=== PATIENT | male | born 1995 | race Caucasian/White ===

== ENCOUNTER 2016-11-10 10:27 | Inpatient (IN) | payer OTHER ==
[2016-11-10] VITALS (7 sets, daily range): BP systolic 135–145; BP diastolic 79–92; PULSE 91–106; RESP 14–18; TEMP 98–98.2; O2SAT 96–98
[2016-11-10] MEDS ORDERED: METF500T PO (10:54)
[2016-11-10] MEDS ORDERED: SITA50TA4 PO (10:54)
[2016-11-10] MEDS ORDERED: ASPIRIN 325 MG TAB PO ONE (11:15)
[2016-11-10] MEDS ORDERED: SODIUM CHLORIDE 0.9% FLUSH 10 ML FLUSH IVF PRN (11:15)
--- NOTE | 2016-11-10 11:23 | PD ---
HPI Chief Complaint: Neuro Symptoms/ Deficits Time Seen by Provider: 10:58 Travel History International Travel<30 days: No Contact w/Intl Traveler<30days: No Traveled to known affect area: No History of Present Illness HPI The patient is a 21-year-old male who presents to the emergency department with his mother and father after being evaluated by his neurologist in [place], [place]. The patient started having symptoms in July which include slurring of the speech. The patient was enrolled in college in [place], [place]. The patient appeared to have anxiety issues and was somewhat paranoid according to the mother. The patient was evaluated by counselors at the [facility] she stated it may be related to stress. However, the mother noted the patient started to have difficulty with speech and occasionally would have difficulty moving certain parts of the body. The patient was seen by the primary physician and referred to neurology. The patient had an [facility] the brain [facility] at [facility] which revealed multifocal areas of acute cortical infarction involving the left posterior parietal, left medial occipital , bilateral temporal lobes with no acute hemorrhage noted. The multifocal distribution raised the possibility of embolic disease. The patient is not sexually active and has no history of IVDA. The parents state the patient was a full-term delivery, vaginal, and was admitted to the hospital 2 weeks of age for possible meningitis. However, the mother states that the lumbar puncture was negative for meningitis. He does have a history of tick exposure in the past, but no history of Lyme disease. No history of syphilis according to the patient or family members. Patient was referred to the emergency department for further evaluation of multiple strokes. 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) Influenza Vaccination: No Past Surgical History Surgical History: No Previous Surgery Social History Alcohol Use: No Tobacco Use: No Substance Use: No Allergies-Medications (Allergen,Severity, Reaction): Coded Allergies: No Known Allergies (Unverified , 11/10/16) Reported Meds & Prescriptions Reported Meds & Active Scripts Active Reported Janumet Xr (Sitagliptin-Metformin ER) 50-1,000 Mg Tab 1 Tab PO DAILY Metformin (Metformin HCl) 500 Mg Tab 500 Mg PO BIDPC With meals Review of Systems Except as stated in HPI: all other systems reviewed are Neg Eyes: Positive: Visual changes HENT: No: Headaches Cardiovascular: No: Chest Pain or Discomfort Respiratory: No: Shortness of Breath Gastrointestinal: No: Nausea, Vomiting, Abdominal Pain Neurologic: Positive: Weakness, Focal Abnormalities, Coordination Problem, Change in Mentation, Slurred Speech Psychiatric: No: Substance Abuse Physical Exam Narrative GENERAL: Awake, alert, very pleasant 21-year-old male who appears his stated age and is in no acute respiratory distress. The patient does appear mildly paranoid and keeps looking over his right shoulder. SKIN: Focused skin assessment warm/dry. HEAD: Atraumatic. Normocephalic. EYES: Pupils equal and round. Pupils are 4 mm bilateral and reactive. EOMs are intact. ENT: No nasal bleeding or discharge. Mucous membranes pink and moist. NECK: Trachea midline. No JVD. CARDIOVASCULAR: Regular rate and rhythm. No murmur appreciated. RESPIRATORY: No accessory muscle use. Clear to auscultation. Breath sounds equal bilaterally. GASTROINTESTINAL: Abdomen soft, non-tender, nondistended. No rebound tenderness. MUSCULOSKELETAL: No obvious deformities. No clubbing. No cyanosis. No edema. NEUROLOGICAL: Awake and alert. Patient will follow simple commands. Extraocular muscles are intact. He will open the mouth but will not stick the tongue out. 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 He will move both legs but has difficulty performing heel to [place]. He will place the right hand to the nose, but has difficulty place in the left hand to the nose. He is able to tell me his name, has mild dysarthria. Slight stuttering speech. PSYCHIATRIC: Appears slightly paranoid. Data Data Last Documented VS Vital Signs Date Time Temp Pulse Resp B/P Pulse Ox O2 Delivery O2 Flow Rate FiO2 11/10/16 11:00 104 14 144/92 97 Room Air 11/10/16 10:28 98.0 Orders Electrocardiogram (11/10/16 11:11) Prothrombin Time / Inr (Pt) (11/10/16 11:11) Act Partial Throm Time (Ptt) (11/10/16 11:11) Complete Blood Count With Diff (11/10/16 11:11) Comprehensive Metabolic Panel (11/10/16 11:11) Creatine Kinase (Cpk) (11/10/16 11:11) Drug Screen, Random Urine (11/10/16 11:11) Troponin I (11/10/16 11:11) Urinalysis - C+S If Indicated (11/10/16 11:11) Chest, Single Ap (11/10/16 11:11) Ecg Monitoring (11/10/16 11:11) Iv Access Insert/Monitor (11/10/16 11:11) Oximetry (11/10/16 11:11) Aspirin (Aspirin) (11/10/16 11:15) Sodium Chloride 0.9% Flush (Ns Flush) (11/10/16 11:15) Rapid Plasma Regin (Rpr) W Ttr (11/10/16 11:11) Bonnie Screen (11/10/16 11:11) Rheumatoid Screen/Titer (Rf) (11/10/16 11:11) Lyme Disease Pcr (11/10/16 11:11) B.Burgdorferi Igg&Igm Ab Lymes (11/10/16 11:11) Admit Order (Ed Use Only) (11/10/16 11:46) Labs Laboratory Tests Test 11/10/16 11:20 White Blood Count 8.6 TH/MM3 Red Blood Count 4.67 MIL/MM3 Hemoglobin 14.7 GM/DL Hematocrit 41.5 % Mean Corpuscular Volume 88.7 FL Mean Corpuscular Hemoglobin 31.4 PG Mean Corpuscular Hemoglobin 35.4 % Concent Red Cell Distribution Width 12.1 % Platelet Count 263 TH/MM3 Mean Platelet Volume 9.6 FL Neutrophils (%) (Auto) 74.6 % Lymphocytes (%) (Auto) 15.3 % Monocytes (%) (Auto) 6.0 % Eosinophils (%) (Auto) 3.1 % Basophils (%) (Auto) 1.0 % Neutrophils # (Auto) 6.4 TH/MM3 Lymphocytes # (Auto) 1.3 TH/MM3 Monocytes # (Auto) 0.5 TH/MM3 Eosinophils # (Auto) 0.3 TH/MM3 Basophils # (Auto) 0.1 TH/MM3 CBC Comment DIFF FINAL Differential Comment Prothrombin Time 10.5 SEC Prothromb Time International 1.0 RATIO Ratio Activated Partial 26.3 SEC Thromboplast Time Sodium Level 136 MEQ/L Potassium Level 4.4 MEQ/L Chloride Level 101 MEQ/L Carbon Dioxide Level 26.0 MEQ/L Anion Gap 9 MEQ/L Blood Urea Nitrogen 29 MG/DL Creatinine 0.92 MG/DL Estimat Glomerular Filtration 103 ML/MIN Rate Random Glucose 214 MG/DL Calcium Level 9.6 MG/DL Total Bilirubin 0.4 MG/DL Aspartate Amino Transf 51 U/L (AST/SGOT) Alanine Aminotransferase 69 U/L (ALT/SGPT) Alkaline Phosphatase 78 U/L Total Creatine Kinase 293 U/L Troponin I LESS THAN 0.02 NG/ML Total Protein 7.3 GM/DL Albumin 4.1 GM/DL Rheumatoid Factor Screen NEGATIVE Rheumatoid Factor Titer IU/ML MDM Medical Decision Making Medical Screen Exam Complete: Yes Emergency Medical Condition: Yes Medical Record Reviewed: Yes Interpretation(s) MRI of the brain with and without contrast performed November 06, 2016 [facility] reveals multifocal areas of acute cortical infarction involving the left posterior parietal, left medial occipital, bilateral temporal lobes. No acute hemorrhage noted. Multifocal distribution raises possibility of embolic disease. Clinical correlation is recommended. Laboratory Tests Test 11/10/16 11:20 White Blood Count 8.6 TH/MM3 Red Blood Count 4.67 MIL/MM3 Hemoglobin 14.7 GM/DL Hematocrit 41.5 % Mean Corpuscular Volume 88.7 FL Mean Corpuscular Hemoglobin 31.4 PG Mean Corpuscular Hemoglobin 35.4 % Concent Red Cell Distribution Width 12.1 % Platelet Count 263 TH/MM3 Mean Platelet Volume 9.6 FL Neutrophils (%) (Auto) 74.6 % Lymphocytes (%) (Auto) 15.3 % Monocytes (%) (Auto) 6.0 % Eosinophils (%) (Auto) 3.1 % Basophils (%) (Auto) 1.0 % Neutrophils # (Auto) 6.4 TH/MM3 Lymphocytes # (Auto) 1.3 TH/MM3 Monocytes # (Auto) 0.5 TH/MM3 Eosinophils # (Auto) 0.3 TH/MM3 Basophils # (Auto) 0.1 TH/MM3 CBC Comment DIFF FINAL Differential Comment Prothrombin Time 10.5 SEC Prothromb Time International 1.0 RATIO Ratio Activated Partial 26.3 SEC Thromboplast Time Sodium Level 136 MEQ/L Potassium Level 4.4 MEQ/L Chloride Level 101 MEQ/L Carbon Dioxide Level 26.0 MEQ/L Anion Gap 9 MEQ/L Blood Urea Nitrogen 29 MG/DL Creatinine 0.92 MG/DL Estimat Glomerular Filtration 103 ML/MIN Rate Random Glucose 214 MG/DL Calcium Level 9.6 MG/DL Total Bilirubin 0.4 MG/DL Aspartate Amino Transf 51 U/L (AST/SGOT) Alanine Aminotransferase 69 U/L (ALT/SGPT) Alkaline Phosphatase 78 U/L Total Creatine Kinase 293 U/L Troponin I LESS THAN 0.02 NG/ML Total Protein 7.3 GM/DL Albumin 4.1 GM/DL Rheumatoid Factor Screen NEGATIVE Rheumatoid Factor Titer IU/ML Chest x-ray unremarkable Differential Diagnosis Differential diagnoses includes CVA, TIA, septic emboli, endocarditis, myxoma, ventricular/atrial thrombus, autoimmune disease, hypercoagulable disorder, syphilis, Lyme disease, vasculitis. Narrative Course IV was established, labs are drawn and sent, and the patient was placed on cardiac telemetry monitoring and continuous pulse oximetry monitoring. I reviewed the patient's MRI, no acute hemorrhage noted, multiple infarcts suggesting multifocal distribution and the possibility of embolic disease. The patient was administered aspirin. I discussed the patient with the on-call medical team who agrees with admission. Physician Communication Physician Communication I discussed the patient with the on-call medical team who agrees with admission. Diagnosis Primary Impression: CVA (cerebral vascular accident) Qualified Code: I63.9 - Cerebrovascular accident (CVA), unspecified mechanism Admitting Information Admitting Physician Requests: Admit Condition: Stable Papo Stephen MD November 10, 2016 11:23
[2016-11-10 11:36] LABS: AUTOMATED NEUTROPHIL # 6.4 TH/MM3 (1.8-7.7); BASOPHIL # 0.1 TH/MM3 (0-0.2); EOSINOPHIL # 0.3 TH/MM3 (0-0.4); EOSINOPHIL % 3.1 % (0.0-4.0); HEMATOCRIT 41.5 % (39.0-51.0); HEMO FLAGS DIFF FINAL; LYMPH % 15.3 % (9.0-44.0); LYMPHOCYTE # 1.3 TH/MM3 (1.0-4.8); MEAN CELL VOLUME 88.7 FL (80.0-100.0); MEAN CORPUSCULAR HEMOGLOBIN 31.4 PG (27.0-34.0); MEAN CORPUSCULAR HGB CONC 35.4 % (32.0-36.0); NEUT % 74.6 % (16.0-70.0); PLATELET COUNT 263 TH/MM3 (150-450); RED BLOOD COUNT 4.67 MIL/MM3 (4.50-5.90); RED CELL DISTRIBUTION WIDTH 12.1 % (11.6-17.2); WHITE BLOOD COUNT 8.6 TH/MM3 (4.0-11.0)
[2016-11-10 11:42] LABS: APTT (PATIENT) 26.3 SEC (24.3-30.1); PROTHROMBIN TIME - PATIENT 10.5 SEC (9.8-11.6)
[2016-11-10 11:50] LABS: ALT (GPT) 69 U/L (12-78); ANION GAP 9 MEQ/L (5-15); AST (GOT) 51 U/L (15-37); BLOOD UREA NITROGEN 29 MG/DL (7-18); CHLORIDE 101 MEQ/L (98-107); GLOMERULAR FILTRATION RATE 103 ML/MIN (>89); POTASSIUM 4.4 MEQ/L (3.5-5.1); SODIUM (NA) 136 MEQ/L (136-145)
[2016-11-10 11:51] LABS: RHEUMATOID FACTOR TRIGGER LESS THAN 10.0 IU/ML (0.0-14.9)
[2016-11-10 11:53] LABS: ALKALINE PHOSPHATASE 78 U/L (45-117); CREATINE KINASE 293 U/L (39-308); TOTAL BILIRUBIN ADULT 0.4 MG/DL (0.2-1.0)
--- NOTE | 2016-11-10 12:41 | RADRPT ---
EXAM DATE/TIME: 11/10/2016 11:20 [facility] COMPARISON: No previous studies available for comparison. INDICATIONS : Stroke MEDICAL HISTORY : None. SURGICAL HISTORY : None. ENCOUNTER: Initial ACUITY: 1 day PAIN SCORE: 0/10 LOCATION: Bilateral chest FINDINGS: A single view of the chest demonstrates the lungs to be symmetrically aerated without evidence of mas s, infiltrate or effusion. The cardiomediastinal contours are unremarkable. Osseous structures are intact. CONCLUSION: No acute disease. Archie Denise MD on November 10, 2016 at 12:39 Board Certified Radiologist. This report was verified electronically.
--- NOTE | 2016-11-10 13:01 | HHI.HP ---
[facility] Service Family Medicine Primary Care Physician Charlie Juarez MD Admission Diagnosis CVA, probable embolic Diagnoses: International Travel<30 Days: No Contact w/Intl Traveler<30days: No Known Affected Area: No History of Present Illness Patient is a 21 year old male sent to the ED by his neurologist in [place] for further evaluation following an MRI brain w/ and w/o from 11/06 with findings showing multifocal areas of acute cortical infarction involving the left posterior parietal, left medial occipital, bilateral temporal lobes with no acute hemorrhage noted. Parents state he was previously healthy prior to 2016. At that time, the patient was at [facility] in [place], [place] and his parents report he called them over the phone due to having slurred speech. Parents state the only other symptom he had at that time was of a headache. Patient did not have any motor weakness or cognitive deficit that they know of. They state he was evaluated by a physician shortly after that, had a CT scan in July which they state was normal. He was later evaluated by an laundry operator wash room during spring in August and diagnosed with T2DM; patient had an HbA1c of 10.8. He was then started on Metformin. During spring he also had a complete physical examination by his PCP as well as basic lab workup which parents state were all normal. Parents state he was at his baseline healthy status and functioning well without any speech, motor, or cognitive deficit. He visited home again during and was fine at that time. Parents state near the end of September he called his parents again and stated he had difficulty comprehending his final exam. He also starting becoming more confused at this time and parents state he could only understand a few things. Patient was able to graduate college with a degree in criminal justice but parents state he remained so confused he needed close assistance to be able to walk across the stage at graduation. Patient has been living with his parents the past couple weeks and parents report his cognitive status has continued to slowly decline over this time period. They also report he first had motor weakness earlier today when his balance was off. Parents do state he has exposure to ticks. They previously had a [employer] [place] [employer] dog and he would help to get ticks off the dog. However they state to their knowledge he was never bitten by a tick. They deny him every using IV drugs. They state he is not sexually active. No h/o syphilis. They deny any fevers, chills, or night sweats at any time since his symptoms first appeared in July. (Emil Alvarez MD R1) Review of Systems Constitutional: COMPLAINS OF: Weight loss, DENIES: Fever, Chills, Night Sweats Respiratory: DENIES: Cough, Shortness of breath Cardiovascular: DENIES: Chest pain Gastrointestinal: DENIES: Bloody stools Genitourinary: DENIES: Hematuria Integumentary: DENIES: Rash Neurologic: COMPLAINS OF: Headache, Speech Problems, DENIES: Localized weakness, Seizures Psychiatric: COMPLAINS OF: Anxiety, Confusion Other ROS provided by parents (Emil Alvarez MD R1) Past Family Social History Past Medical History Parents report he was treated for meningitis at 2 weeks of age, LP was negative for bacterial etiology per parents Needed hearing aids beginning at about [age] years of age, parents report a work up was done at that time including an MRI brain which was normal T2DM diagnosed 08/2016 Past Surgical History Towner teeth extraction Reported Medications Reported Meds & Active Scripts Active Reported Janumet Xr (Sitagliptin-Metformin ER) 50-1,000 Mg Tab 1 Tab PO DAILY Metformin (Metformin HCl) 500 Mg Tab 500 Mg PO BIDPC With meals (Emil Alvarez MD R1) Allergies: Coded Allergies: No Known Allergies (Unverified , 11/10/16) Family History MGM: DM onset in 60s MGF: [place] early 60s, vascular dementia, MS onset reportedly in 70s PGF: CHF PGM: Alzheimer's Per parents no known FH of autoimmune disorders or coagulopathies Social History Patient lived in [place] up through high school, then moved to [place] with his parents Parents state he has no h/o IVDA or cigarette smoking Rare etoh intake on social occasions only Parents do not think he is sexually active No other sick contacts No recent travel out of country or state No recent camping trips (Emil Alvarez MD R1) Physical Exam Vital Signs Vital Signs Date Time Temp Pulse Resp B/P Pulse Ox O2 Delivery O2 Flow Rate FiO2 11/10/16 12:00 102 14 137/87 97 Room Air 11/10/16 11:00 104 14 144/92 97 Room Air 11/10/16 10:47 103 15 98 11/10/16 10:28 98.0 93 18 141/79 98 Room Air Physical Exam GENERAL: NAD, lying in bed, repeatedly looks over his right shoulder NEURO: Limited due to cognitive status. Patient is alert. Oriented to person. Does not follow most commands. Speech is slurred. There are some cranial nerve deficits, difficult to assess as patient does not follow all commands. Left eyebrow raise decreased. Visual block are unable to be tested. Does not cooperate to assess strength or sensory. Gait not tested. SKIN: Warm and dry. No rashes or erythema. HEAD: Normocephalic. Atraumatic. EYES: PERRL. EOMI. No scleral icterus. No injection or drainage. ENT: Bilateral hearing aids in place. No nasal drainage. Moist mucous membranes. No oral ulcers or lesions. NECK: Supple, trachea midline. No JVD or lymphadenopathy. CARDIOVASCULAR: Regular rate and rhythm without murmurs, rubs, gallops, or plops. Peripheral pulses 2+. Capillary refill < 2 seconds. RESPIRATORY: Breath sounds clear to auscultation and equal bilaterally, without wheezes, rales, or rhonchi. No accessory muscle use. GASTROINTESTINAL: Abdomen soft, nontender, nondistended, normal BS. No organomegaly or masses. No rebound tenderness. No guarding. MUSCULOSKELETAL: No edema, cyanosis, or clubbing. BACK: Nontender without obvious deformity. Laboratory Laboratory Tests Test 11/10/16 11:20 White Blood Count 8.6 Red Blood Count 4.67 Hemoglobin 14.7 Hematocrit 41.5 Mean Corpuscular Volume 88.7 Mean Corpuscular Hemoglobin 31.4 Mean Corpuscular Hemoglobin 35.4 Concent Red Cell Distribution Width 12.1 Platelet Count 263 Mean Platelet Volume 9.6 Neutrophils (%) (Auto) 74.6 Lymphocytes (%) (Auto) 15.3 Monocytes (%) (Auto) 6.0 Eosinophils (%) (Auto) 3.1 Basophils (%) (Auto) 1.0 Neutrophils # (Auto) 6.4 Lymphocytes # (Auto) 1.3 Monocytes # (Auto) 0.5 Eosinophils # (Auto) 0.3 Basophils # (Auto) 0.1 CBC Comment DIFF FINAL Differential Comment Prothrombin Time 10.5 Prothromb Time International 1.0 Ratio Activated Partial 26.3 Thromboplast Time Sodium Level 136 Potassium Level 4.4 Chloride Level 101 Carbon Dioxide Level 26.0 Anion Gap 9 Blood Urea Nitrogen 29 Creatinine 0.92 Estimat Glomerular Filtration 103 Rate Random Glucose 214 Calcium Level 9.6 Total Bilirubin 0.4 Aspartate Amino Transf 51 (AST/SGOT) Alanine Aminotransferase 69 (ALT/SGPT) Alkaline Phosphatase 78 Total Creatine Kinase 293 Troponin I LESS THAN 0.02 Total Protein 7.3 Albumin 4.1 Rheumatoid Factor Screen NEGATIVE Rheumatoid Factor Titer (Emil Alvarez MD R1) Result Diagram: 11/10/16 1120 11/10/16 1120 Imaging Last 48 hours Impressions Chest X-Ray 11/10/16 1111 Signed Impressions: Service Date/Time: Thursday, November 10, 2016 11:20 - CONCLUSION: No acute disease. Archie Denise MD Neck CTA 11/10/16 0000 Signed Impressions: Service Date/Time: Thursday, November 10, 2016 13:55 - CONCLUSION: 1. Negative examination of the carotid arteries Jorge Kearney MD Head Magnetic Resonance Angiography 11/10/16 0000 Signed Impressions: Service Date/Time: Thursday, November 10, 2016 15:06 - CONCLUSION: 1. Unremarkable MR angiography of the brain. Jorge Kearney MD Head CTA 11/10/16 0000 Signed Impressions: Service Date/Time: Thursday, November 10, 2016 13:55 - CONCLUSION: No stenosis, thrombus or aneurysm. Normal variants as described above. Archie Denise MD Head CT 11/10/16 0000 Signed Impressions: Service Date/Time: Thursday, November 10, 2016 13:49 - CONCLUSION: 1. Acute left temporoparietal infarction.In a patient of this age emboli should be considered both bland and septic. Echocardiography should be considered Jorge Kearnye MD Brain MRI 11/10/16 0000 Signed Impressions: Service Date/Time: Thursday, November 10, 2016 15:06 - CONCLUSION: 1. Acute nonhemorrhagic infarction involving the left temporal parietal lobe. 2. Abnormal signal involving both temporal lobes and right parietal lobe. These areas are not consistent with infarction. The findings would suggest global hypoxia. Infectious encephalitis could have a similar appearance but is felt less likely. Charlie Salas Jr., MD (Emil Alvarez MD R1) Assessment and Plan Assessment and Plan 21 year old male with recent diagnosis of T2DM in 08/2016 but otherwise healthy sent to the ED by his neurologist for further evaluation following an MRI brain w/ and w/o from 11/06 with findings showing multifocal areas of acute cortical infarction involving the left posterior parietal, left medial occipital, bilateral temporal lobes with no acute hemorrhage noted. Etiology is unclear at this time, includes infectious causes, structural heart disease, PFO, atrial myxoma, endocarditis if any unreported IV drug use, hypercoagulability disorder , vs embolic phenomenon due to another cause. Code Status Full code Discussed Condition With Dr. Trejo, Dr. Sarabjit Barlow, [facility] Dr. Antonio Stephen (Emil Alvarez MD R1) Attending Attestation Patient seen and examined. Case reviewed and discussed with the resident team. Agree with plan of care as discussed with me and documented in the resident note. seen on admission in ED (Carissa Trejo MD) Problem List: (1) Multifocal neurological deficit Status: Acute Plan: - Imaging obtained as above, significant for acute nonhemorrhagic infarction involving the left temporal and parietal lobe, abnormal signals not c /w infarction, findings suggestive of global hypoxia, infectious encephalitis to be considered in the differential - Neurology consulted. Dr. Alvarez was informed of the case via phone, recommended imaging obtained above, appreciate recommendations - Cardiology consulted for possible structural heart disease as underlying cause , possible FRANKY - EKG shows sinus tachycardia at 101 bpm - Hypercoagulability workup started, including factor 5, lupus anticoagulant, protein C and S, antithrombin - Hematology consulted, appreciate recommendations - Urine drug screen ordered in the case any IV drug use was unreported - Lyme serologies pending - AILYN pending - RF pending - RPR pending - Continuous telemetry - Neuro checks q4h - Monitor vitals q4h - OOB with assistance only - PT/OT - Keep NPO for now ahead of any potential interventions (2) T2DM (type 2 diabetes mellitus) Status: Chronic Plan: Accuchecks ACHS Low-dose ISS (Emil Alvarez MD R1) Physician Certification 2 Midnight Certification Type: Admission for Inpatient Services Order for Inpatient Services The services are ordered in accordance with Medicare regulations or non- Medicare payer requirements, as applicable. In the case of services not specified as inpatient-only, they are appropriately provided as inpatient services in accordance with the 2-midnight benchmark. Estimated LOS (days): 2 days is the estimated time the patient will need to remain in the hospital, assuming treatment plan goals are met and no additional complications. Post-Hospital Plan: Home (Emil lAvarez MD R1) Problem Qualifiers (1) T2DM (type 2 diabetes mellitus): Qualified Code: E11.9 - Type 2 diabetes mellitus without complication, without long-term current use of insulin Emil Alvarez MD R1 November 10, 2016 13:01 Carissa Trejo MD November 11, 2016 14:09
[2016-11-10] MEDS ORDERED: NALOXONE HCL 0.4 MG/ML AMP IV PRN (13:30)
[2016-11-10] MEDS: SODIUM CHLORIDE 0.9% FLUSH 10 ML FLUSH IV FLUSH SCH ×2 (13:30→21:52)
[2016-11-10] MEDS ORDERED: SODIUM CHLORIDE 0.9% FLUSH 10 ML FLUSH IV FLUSH PRN (13:30)
[2016-11-10 13:37] LABS: BLOOD, URINE NEG (NEG); GLUCOSE,URINE 1000 mg/dL (NEG); KETONE, URINE NEG (NEG); MUCUS URINE FEW /lpf (OCC); NITRITE,URINE NEG (NEG); URINE COLOR YELLOW (YELLW/STRAW)
[2016-11-10 13:38] LABS: COMMENT (UR) CATH-CULT NOT IND; CULTURE IF INDICATED CATH CULTURE NOT IND
[2016-11-10] MEDS ORDERED: IOHEXOL 350 MG/ML 10 ML VIAL (for RAD DIAG) IV ONE (14:06)
[2016-11-10 14:32] LABS: HDL CHOLESTEROL 59.7 MG/DL (40.0-60.0)
--- NOTE | 2016-11-10 14:55 | RADRPT ---
EXAM DATE/TIME: 11/10/2016 13:49 [facility] COMPARISON: No previous studies available for comparison. INDICATIONS : Inability to speak. Evaluate for possible emoblism RADIATION DOSE: 56.35 CTDIvol (mGy) MEDICAL HISTORY : Cerebrovascular disease. Diabetes mellitus type 2. SURGICAL HISTORY : None. ENCOUNTER: Initial ACUITY: 1 day PAIN SCALE: 0/10 LOCATION: cranial TECHNIQUE: Multiple contiguous axial images were obtained of the head. Using automated exposure control and adj ustment of the mA and/or kV according to patient size, radiation dose was kept as low as reasonably a chievable to obtain optimal diagnostic quality images. FINDINGS: There is an acute ischemic infarct involving the left parietal lobe involving 25% of the middle cereb ral artery extending inferiorly into the left temporal lobe. No extra axial fluid collections are kayla ntified. The right hemisphere appears normal. Posterior fossa structures demonstrate cerebellar atrophy prominent for a patient of this age. The ve ntricles are normal in size. CONCLUSION: 1. Acute left temporoparietal infarction.In a patient of this age emboli should be considered both bl and and septic. Echocardiography should be considered Jorge Kearney MD on November 10, 2016 at 14:42 Board Certified Radiologist. This report was verified electronically.
--- NOTE | 2016-11-10 15:05 | RADRPT ---
EXAM DATE/TIME: 11/10/2016 13:55 [facility] COMPARISON: No previous studies available for comparison. INDICATIONS : Inability to speak. IV CONTRAST: 75 cc Omnipaque 350 (iohexol) IV ; Cumulative dose for multiple exams. RADIATION DOSE: 13.04 CTDIvol (mGy) ; Combined studies MEDICAL HISTORY : Cerebrovascular disease. Diabetes mellitus type 2. SURGICAL HISTORY : None. ENCOUNTER: Initial ACUITY: 1 day PAIN SCALE: 0/10 LOCATION: cranial TECHNIQUE: Volumetric scanning was performed using a multi-row detector CT scanner. The data was post processed with a variety of visualization algorithms including full volume maximum intensity projection, multi -planar sliding thin slab reformation, curved planar reformation, and surface rendering techniques. Using automated exposure control and adjustment of the mA and/or kV according to patient size, radiat ion dose was kept as low as reasonably achievable to obtain optimal diagnostic quality images. FINDINGS: There is excellent visualization of the major intracranial arteries out to the second-order branch ve ssels. There is no evidence for aneurysm, vessel truncation or stenosis, and no evidence for vascula r malformation. Middle, anterior and posterior cervical arteries are normal. No thrombus or stenosis. No aneurysm. Ve rtebrobasilar junction normal. Anterior communicating artery. Persistent circulation the left p osterior cerebral artery. CONCLUSION: No stenosis, thrombus or aneurysm. Normal variants as described above. Archie Denise MD on November 10, 2016 at 14:51 Board Certified Radiologist. This report was verified electronically.
--- NOTE | 2016-11-10 15:22 | RADRPT ---
EXAM DATE/TIME: 11/10/2016 13:55 [facility] COMPARISON: No previous studies available for comparison. INDICATIONS : Inability to speak. IV CONTRAST: 75 cc Omnipaque 350 (iohexol) IV ; Cumulative dose for multiple exams. RADIATION DOSE: 13.4 CTDIvol (mGy) ; Combined studies MEDICAL HISTORY : Cerebrovascular disease. Diabetes mellitus type 2. SURGICAL HISTORY : None. ENCOUNTER: Initial ACUITY: 1 day PAIN SCALE: 0/10 LOCATION: neck Elevated flow velocities and ICA/CCA ratios have been found to correlate with increased degrees of vessel stenosis, calculated as percentage of diameter relative to a normal segment of distal ICA/CCA. TECHNIQUE: Volumetric scanning was performed using a multirow detector CT scanner. The data was post processed with a variety of visualization algorithms including full-volume maximum intensity projection, multip lanar sliding thin-slab reformation, curved-planar reformation, and surface-rendering techniques. Us ing automated exposure control and adjustment of the mA and/or kV according to patient size, radiatio n dose was kept as low as reasonably achievable to obtain optimal diagnostic quality images. FINDINGS: No abnormality is identified within the lung apices. There is normal origin of vessels from the arch without evidence of proximal stenosis. There is direct origin of the left vertebral artery from the a rch which can be seen as a normal variation. Examination of the right common carotid artery demonstrates the vessel to be widely patent. There is 0-10% stenosis at the origin of the internal carotid artery More distally the cervical internal carot id artery is intact. Examination of the left common carotid artery demonstrates the vessel to be widely patent. There is 0 -10% stenosis at the origin of the internal carotid artery More distally the cervical internal caroti d artery is intact. Percent stenosis is calculated using the diameter of the stenotic region over the diameter of the nor mal distal internal carotid artery. CONCLUSION: 1. Negative examination of the carotid arteries Jorge Kearney MD on November 10, 2016 at 15:19 Board Certified Radiologist. This report was verified electronically.
[2016-11-10] MEDS ORDERED: GADODIAMIDE PF 287 MG/ML 10 ML VIAL (for RAD MRI) IV ONE (15:30)
--- NOTE | 2016-11-10 15:34 | RADRPT ---
EXAM DATE/TIME: 11/10/2016 15:06 [facility] COMPARISON: No previous studies available for comparison. INDICATIONS : Altered mental status. MEDICAL HISTORY : Diabetes mellitus type 2. SURGICAL HISTORY : repair of broken leg ENCOUNTER: Initial ACUITY: 2 day PAIN SCORE: 0/10 LOCATION: cranial Please note a normal MRA of the brain does not entirely exclude the possibility of a small aneurysm, nor the possibility of distal intracranial vessel disease. TECHNIQUE: 3D time of flight MRA was performed. Source images, multiplanar STS MIP, and 3D volume MIP reconstru ctions were reviewed. FINDINGS: There is excellent visualization of the major intracranial arteries out to the second-order branch ve ssels. There is no evidence for aneurysm, vessel truncation or stenosis, and no evidence for vascula r malformation. There is a patent posterior communicating artery on the right. There is a origi n of the posterior cerebral artery on the left. The right vertebral artery is dominant. CONCLUSION: 1. Unremarkable MR angiography of the brain. Jorge Kearney MD on November 10, 2016 at 15:29 Board Certified Radiologist. This report was verified electronically.
--- NOTE | 2016-11-10 16:33 | RADRPT ---
EXAM DATE/TIME: 11/10/2016 15:06 [facility] COMPARISON: CT BRAIN W/O CONTRAST, November 10, 2016, 13:49. INDICATIONS : Altered mental status. CONTRAST: 10 cc Omniscan (gadodiamide) IV MEDICAL HISTORY : Diabetes mellitus type 2. SURGICAL HISTORY : Surgery for broken leg. ENCOUNTER: Initial ACUITY: 2 day PAIN SCORE: 0/10 LOCATION: cranial TECHNIQUE: Multiplanar, multisequence MRI of the brain was performed both prior to and following the administrat ion of paramagnetic contrast. FINDINGS: Marked abnormality is observed involving the left temporoparietal lobe with extension in the left occ ipital lobe. This has high T2 signal abnormality as well as strictured diffusion consistent with an a vale of infarction. Abnormal signal involving the cortex of the left temporal lobe, right temporal lob e, and right parietal lobe without diffusion weighted abnormality. No hemorrhage observe. No mass obs erved. No abnormal enhancement observed. Ventricles are normal in size. Paranasal sinuses and mastoid air cells are clear. CONCLUSION: 1. Acute nonhemorrhagic infarction involving the left temporal parietal lobe. 2. Abnormal signal involving both temporal lobes and right parietal lobe. These areas are not consist ent with infarction. The findings would suggest global hypoxia. Infectious encephalitis could have a similar appearance but is felt less likely. Charlie Salas Jr., MD on November 10, 2016 at 16:18 Board Certified Radiologist. This report was verified electronically.
[2016-11-10] MEDS ORDERED: FOSPHENYTOIN INJ 1,000 MGPE in SODIUM CHLORIDE 0.9% INJ 50 ML IV ONE (17:00)
--- NOTE | 2016-11-10 17:20 | MB ---
cc: GWENDOLYN ANGELA MD DATE OF CONSULTATION 11/10/16 HISTORY OF PRESENT ILLNESS Mr. Morales is a 21-year-old me who has had a fairly unremarkable past medical history until a few weeks ago. He was noted to have some symptoms with slurred speech in July. The patient subsequently underwent workup by a neurologist in [place]. The patient is unable to give any real history himself at this point and the history is essentially obtained from his parents. They note that he graduated from school from college two weeks ago with a bachelor's degree in criminal justice. The patient began having progressive difficulties and was subsequently seen by his neurologist after an MRI of the brain that showed multiple acute cerebral infarctions. The neurologist then asked him to subsequently go to the hospital. The parents report that he has not been recently ill in terms of fevers or chills. They note that he has no history of drug abuse, particularly IV drug abuse. PAST MEDICAL HISTORY 1. Anxiety, 2. CVA 3. Recently diagnosed with diabetes. SOCIAL HISTORY Negative for alcohol, tobacco or substance abuse ALLERGIES NO KNOWN DRUG ALLERGIES MEDICATIONS Outpatient 1. Janumet. 2. Metformin. FAMILY HISTORY Negative for CAD including negative for cardiac disease including atrial fibrillation. REVIEW OF SYSTEMS Unable. PHYSICAL EXAMINATION VITAL SIGNS: 98.0, 102, 14, 137/87 GENERAL: He is a well-appearing young man who has a focused gaze to the right. He is alert and responsive. LUNGS: Bilaterally clear to auscultation. CARDIOVASCULAR: He has a normal S1 and S2. I did not appreciate any murmurs, rubs or gallops. ABDOMEN: Soft. EXTREMITIES: Free from any edema. LABORATORY DATA PLAN Random glucose of 214, troponin of less than 0.02. IMAGING STUDIES Brain CT shows acute left temporoparietal infarction. Consideration should be given towards both bland and septic emboli. CARDIOLOGY STUDIES EKG shows sinus tachycardia at 101 beats a minute. IMPRESSION Cardiovascular evaluation of an embolic CVA - the patient is being evaluated by neurology. At this point, his telemetry and EKG both show normal sinus rhythm. We will obviously observe him on telemetry for this. I did discuss potential loop recorder with him. We are going to get a stat echo to evaluate for structural heart disease, endocarditis and do a bubble study to evaluate PFO. Shad Be/ /4:54 PM /5:09 PM
--- NOTE | 2016-11-10 17:21 | PD.CONS ---
History of Present Illness Service Neurology Consult Requested By medical Reason for Consult stroke Primary Care Physician Charlie Juarez MD History of Present Illness 21-year-old male who presents to the emergency department with his mother and father after being evaluated by his neurologist in [place], [place]. His neurologist requested for him to come here for further evaluation after an mri brain showed a stroke. onset: first episode 07/2016 had slurred speech lasted several days then resolved. was doing well until earlier this month. 10/26/16 confusion, speech changes. persistent. today has had recurrent episodes of of turning his head to the right and dysarthric speech. no hx of known illicit drug use, fever, sick contacts. dx'd with DM with hba1c 10.9 earlier this year. no family hx of stroke/mitochondrial d/o/autoimmune dz. 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) Influenza Vaccination: No Past Surgical History Surgical History: No Previous Surgery Social History Alcohol Use: No Tobacco Use: No Substance Use: No Allergies-Medications (Allergen,Severity, Reaction): Coded Allergies: No Known Allergies (Unverified , 11/10/16) Reported Meds & Prescriptions Reported Meds & Active Scripts Active Reported Janumet Xr (Sitagliptin-Metformin ER) 50-1,000 Mg Tab 1 Tab PO DAILY Metformin (Metformin HCl) 500 Mg Tab 500 Mg PO BIDPC With meals Review of Systems Except as stated in HPI: all other systems reviewed are Neg Review of Systems All other ROS: ROS reviewed as documented in chart Past Family Social History Allergies: Coded Allergies: No Known Allergies (Unverified , 11/10/16) Active Ordered Medications Current Medications Medications (Trade) Dose Ordered Sig/Liliya Route Start Time Stop Time Status Last Admin (NS Flush) 2 ml UNSCH PRN IV FLUSH 11/10/16 13:30 (NS Flush) 2 ml BID IV FLUSH 11/10/16 13:30 11/10/16 13:30 (Narcan Inj) 0.4 mg UNSCH PRN IV 11/10/16 13:30 Exam I&O / VS Vital Signs Date Time Temp Pulse Resp B/P Pulse Ox O2 Delivery O2 Flow Rate FiO2 11/10/16 12:00 102 14 137/87 97 Room Air 11/10/16 11:00 104 14 144/92 97 Room Air 11/10/16 10:47 103 15 98 11/10/16 10:28 98.0 93 18 141/79 98 Room Air Exam Comments alert, able to tell me his name, not following, confused; had 2-3 episodes of versive head turning to the rt with rt gaze deviation, ou 3-2mm, face sym, garbled speech, lasted 10 secs, no jerking but some ue stiffening, increased tone in ue; localizes with all 4 ext, msr 1-2+, no clonus, planterflexor Review/Management Diagnosis/Plan: (1) Acute encephalopathy Plan: bihemispheric lesions +dwi on left temporal young age etiology: infarct/infectious/inflammatory-cerebritis/mitochondrial d/o (melas?) vessels nml recs echo/[place] hypercoag state lp eeg iv cerebryx labs, hypercoag w/o iv acyclovir follow exam d/w parents d/w cardiology and medical (2) 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
[2016-11-10] MEDS ORDERED: GLUCAGON 1 MG/ML VIAL OTHER PRN (19:00)
[2016-11-10] MEDS ORDERED: DEXTROSE 50% IN WATER 50 ML VIAL(D50) IV PUSH PRN (19:00)
[2016-11-10] MEDS: ACYCLOVIR INJ 500 MG in SODIUM CHLORIDE 0.9% INJ 100 ML IV SCH (20:03)
[2016-11-10 20:43] LABS: PROTHROMBIN TIME - PATIENT 10.9 SEC (9.8-11.6)
[2016-11-10 21:43] LABS: AMPHETAMINE, URINE NEG (NEG); BARBITURATES, URINE NEG (NEG); COCAINE, URINE NEG (NEG)
[2016-11-10] MEDS: INSULIN ASPART SUPPLEMENTAL SCALE SQ SCH (21:50)
[2016-11-10] MEDS: FOSPHENYTOIN SODIUM 100 MG PE/2 ML VIAL IV SCH (21:51)
[2016-11-10 22:16] LABS: ALKALINE PHOSPHATASE 64 U/L (45-117); ALT (GPT) 77 U/L (12-78); AST (GOT) 60 U/L (15-37); CREATINE KINASE 196 U/L (39-308); INDIRECT BILIRUBIN 0.4 MG/DL (0.0-0.8); TOTAL BILIRUBIN ADULT 0.6 MG/DL (0.2-1.0)
[2016-11-10 22:34] LABS: HEMOGLOBIN A1a 1.3 %; HEMOGLOBIN A1b 2.2 %; HEMOGLOBIN Ao 83.3 %; HEMOGLOBIN LA1C 2.3 %; HEMOGLOBIN P3 4.1 %
[2016-11-11] VITALS (8 sets, daily range): BP systolic 117–154; BP diastolic 65–79; PULSE 66–120; RESP 18–22; TEMP 96.4–98.8; O2SAT 96–97
[2016-11-11] MEDS: ACYCLOVIR INJ 500 MG in SODIUM CHLORIDE 0.9% INJ 100 ML IV SCH ×3 (02:51→16:24)
[2016-11-11] MEDS: INSULIN ASPART SUPPLEMENTAL SCALE SQ SCH ×4 (06:21→20:58)
--- NOTE | 2016-11-11 06:23 | MB ---
cc: VIOLETA MICHAEL DATE OF 1995 DATE OF CONSULTATION November 10, 2016 REASON FOR CONSULTATION Patient with acute stroke. CHIEF COMPLAINT The patient has difficulty with speech and weakness. HISTORY OF PRESENT ILLNESS This is a 21-year-old male who presented to the emergency department after he was seen by a neurologist and an MRI of the brain was completed which showed multiple areas of acute cortical infarction involving the posterior parietal, left medial occipital, bilateral temporal lobes. The patient currently has significant difficulty with his speech. He is having dysarthria. He is also somewhat confused. He has left-sided weakness. The patient's mother was present during this exam. According to her, the patient was a student at [employer] in [place], [place]. He graduated from that University recently with a degree in criminal justice. She states that around spring time he developed problems with his speech and cognitive difficulty. He was seen by the school nurse. Subsequently he did fine and had resolution of these symptoms. At the end of September he again started to develop cognitive dysfunction. He had difficulty with his final exam. He became confused. It was unclear whether he had any further evaluation but apparently his symptoms resolved. She tells me that the patient graduated a couple of weeks ago and he became confused again and he had difficulty walking across the stage at graduation. The patient was referred to a neurologist who completed an MRI on 11/06 and subsequently he was sent to the emergency room today. On admission the patient had a head MRA which was unremarkable. He also had a head CTA which did not show any stenosis, thrombosis or aneurysm. A brain MRI showed acute non-hemorrhagic infarction involving the left temporoparietal lobe. There was abnormal signal involving both the temporal lobes and the right parietal lobe. The patient is currently undergoing extensive neurological workup. He is also undergoing an infectious workup and a comprehensive drug screen is also being undertaken. I have been consulted to make further recommendations in this patient who has developed multiple infarcts in the left temporoparietal lobe at a young age. The patient is confused at this time. He is also dysarthric. He is awake and alert. He has left-sided difficulty. He is unable to follow commands clearly. He denies any pain. He denies any problems with his vision. REVIEW OF SYSTEMS Unable to complete due to the patient's mental status. PAST MEDICAL HISTORY None. PAST SURGICAL HISTORY None. MEDICATIONS Reviewed in the EMR ALLERGIES No known drug allergies. SOCIAL HISTORY He just graduated from college. No history of drug abuse or tobacco abuse. This information was obtained from the family. The patient is unable to answer questions. FAMILY HISTORY Noncontributory. There is no family history of blood clots/cardiac events, stroke, etc., at an early age. PHYSICAL EXAMINATION VITAL SIGNS: Blood pressure is 145/80, pulse is in the 100s, temperature is 98.2, respiratory rate is 18, pulse ox is 96% on room air. GENERAL: A young male in no apparent distress. He is dysarthric. HEENT: Pupils are equal, round, reactive to light. EOMI. No oral thrush. No oral lesions. NECK: Supple. No JVD. No bruits. No lymphadenopathy. CHEST: Clear to auscultation bilaterally. CARDIAC: S1-S2. Regular rate and rhythm. ABDOMEN: Soft, nontender, nondistended. Bowel sounds are present. EXTREMITIES: Without any edema, erythema or cyanosis. SKIN: Without any petechiae, lesion or bruises. NEURO: He is alert, confused, dysarthric, having word-finding difficulty. His right lower extremity is flaccid at this time. He is able to lift his left leg. Upper extremity weakness noted in the right extremity. IMAGING STUDIES Reviewed in the EMR. ASSESSMENT AND PLAN This is a 21-year-old male with no significant past medical history who presents to the emergency department with acute encephalopathy/confusion/decline in cognitive functioning and acute brain infarction. Hematology has been consulted to make further recommendations in this patient who has developed a CVA at an early age. 1. Acute stroke. Neurological workup is underway. Currently there is a concern for this patient who is quite young and has developed embolic stroke. There is a possibility of underlying hypercoagulable state. I agree with hypercoagulable workup. We can reliably check Factor V Leiden, antiphospholipid antibodies, prothrombin mutation, AILYN and homocysteine levels. However, some hypercoagulable workup will not be reliable in this situation since he has an acute infarct, although I see that antithrombin III deficiency, activated protein C resistance, protein C and S have been ordered. The patient was given aspirin by Neurology. There are plans for an LP. This patient would benefit from anticoagulation. We can start heparin GTT if it is okay by Neurology. I agree with cardiac workup including a 2-D echocardiogram as well as drug screen for drugs. Thank you for allowing me to participate in the care of this patient. I will continue to follow this patient along. MD ARNIE Jones/TAMRA /2:07 AM /6:08 AM
[2016-11-11 07:02] LABS: AUTOMATED NEUTROPHIL # 4.7 TH/MM3 (1.8-7.7); BASOPHIL # 0.1 TH/MM3 (0-0.2); BASOPHIL % 1.1 % (0.0-2.0); EOSINOPHIL # 0.2 TH/MM3 (0-0.4); EOSINOPHIL % 3.2 % (0.0-4.0); HEMATOCRIT 42.1 % (39.0-51.0); HEMO FLAGS DIFF FINAL; LYMPH % 20.5 % (9.0-44.0); LYMPHOCYTE # 1.4 TH/MM3 (1.0-4.8); MEAN CORPUSCULAR HEMOGLOBIN 30.7 PG (27.0-34.0); MEAN CORPUSCULAR HGB CONC 34.5 % (32.0-36.0); MONO % 7.2 % (0.0-8.0); PLATELET COUNT 253 TH/MM3 (150-450); RED BLOOD COUNT 4.73 MIL/MM3 (4.50-5.90); RED CELL DISTRIBUTION WIDTH 12.1 % (11.6-17.2)
[2016-11-11] MEDS: FOSPHENYTOIN SODIUM 100 MG PE/2 ML VIAL IV SCH ×2 (07:59→21:00)
[2016-11-11 08:00] LABS: ALT (GPT) 69 U/L (12-78); ANION GAP 7 MEQ/L (5-15); AST (GOT) 46 U/L (15-37); BICARBONATE 28.1 MEQ/L (21.0-32.0); BLOOD UREA NITROGEN 22 MG/DL (7-18); CHLORIDE 100 MEQ/L (98-107); GLOMERULAR FILTRATION RATE 117 ML/MIN (>89); POTASSIUM 4.6 MEQ/L (3.5-5.1); SODIUM (NA) 135 MEQ/L (136-145)
--- NOTE | 2016-11-11 08:01 | HHI.PR ---
Review/Management Diagnosis/Plan: (1) Acute encephalopathy Plan: bihemispheric lesions +dwi on left temporal young age etiology: infarct/infectious/inflammatory-cerebritis/mitochondrial d/o (melas?) vessels nml recs echo/braeden-pending. appreciate cardiology hypercoag state lp-pending eeg-pending iv cerebryx iv acyclovir follow exam d/w parents (2) Acute embolic stroke within last 8 weeks (3) Seizure disorder, complex partial Plan: 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 eeg iv cerebryx Subjective Subjective Comments had recurrent episodes until yesterday evening. slept well No headache No chest pain No dyspnea Active Medications Current Medications Medications (Trade) Dose Ordered Sig/Liliya Route Start Time Stop Time Status Last Admin (NS Flush) 2 ml UNSCH PRN IV FLUSH 11/10/16 13:30 (NS Flush) 2 ml BID IV FLUSH 11/10/16 13:30 11/10/16 21:52 (Narcan Inj) 0.4 mg UNSCH PRN IV 11/10/16 13:30 Fosphenytoin Sodium 200 mgpe 200 mgpe Q12HR IV 11/10/16 21:00 11/10/16 21:51 (Zovirax Inj/NS Inj) 100 ml @ 100 mls/hr Q8H IV 11/10/16 18:00 11/28/16 09:00 11/11/16 02:51 (Aspirin) 325 mg DAILY PO 11/11/16 12:00 (D50w (Vial) Inj) 25 ml UNSCH PRN IV PUSH 11/10/16 19:00 (Glucagon Inj) 1 mg UNSCH PRN OTHER 11/10/16 19:00 Allergies Allergies Coded Allergies No Known Allergies (Unverified11/10/16) Review of Systems All other ROS: ROS reviewed as documented in chart Exam I&O / VS 11/10/16 11/10/16 11/11/16 15:00 23:00 07:00 Intake Total 150 ml Balance 150 ml Intake IV Total 150 ml # Voids 1 2 Vital Signs Date Time Temp Pulse Resp B/P Pulse Ox O2 Delivery O2 Flow Rate FiO2 11/11/16 04:00 96.7 90 18 117/65 96 11/11/16 00:00 98.0 97 18 139/78 96 11/10/16 20:33 102 5/16/17 20:00 98.2 106 18 145/80 96 11/10/16 18:03 91 15 137/84 97 Room Air 11/10/16 16:00 97 14 135/87 97 Room Air 11/10/16 12:00 102 14 137/87 97 Room Air 11/10/16 11:00 104 14 144/92 97 Room Air 11/10/16 10:47 103 15 98 11/10/16 10:28 98.0 93 18 141/79 98 Room Air Exam Comments alert, able to tell me his name, follows some simple request, + ideomotor apraxia, dysnomia, eomi, +blink to threat, localizes with all 4 ext, msr 1-2+, no clonus, planterflexor Objective Micro and Labs Laboratory Tests Test 11/10/16 11/10/16 11/10/16 11/10/16 11:20 12:55 19:48 22:45 White Blood Count 8.6 Red Blood Count 4.67 Hemoglobin 14.7 Hematocrit 41.5 Mean Corpuscular Volume 88.7 Mean Corpuscular Hemoglobin 31.4 Mean Corpuscular Hemoglobin 35.4 Concent Red Cell Distribution Width 12.1 Platelet Count 263 Mean Platelet Volume 9.6 Neutrophils (%) (Auto) 74.6 Lymphocytes (%) (Auto) 15.3 Monocytes (%) (Auto) 6.0 Eosinophils (%) (Auto) 3.1 Basophils (%) (Auto) 1.0 Neutrophils # (Auto) 6.4 Lymphocytes # (Auto) 1.3 Monocytes # (Auto) 0.5 Eosinophils # (Auto) 0.3 Basophils # (Auto) 0.1 CBC Comment DIFF FINAL Differential Comment Prothrombin Time 10.5 10.9 Prothromb Time International 1.0 1.0 Ratio Activated Partial 26.3 28.0 Thromboplast Time Sodium Level 136 Potassium Level 4.4 Chloride Level 101 Carbon Dioxide Level 26.0 Anion Gap 9 Blood Urea Nitrogen 29 Creatinine 0.92 Estimat Glomerular Filtration 103 Rate Random Glucose 214 Calcium Level 9.6 Total Bilirubin 0.4 0.6 Aspartate Amino Transf 51 60 (AST/SGOT) Alanine Aminotransferase 69 77 (ALT/SGPT) Alkaline Phosphatase 78 64 Total Creatine Kinase 293 196 Troponin I LESS THAN 0.02 Total Protein 7.3 6.9 Albumin 4.1 4.0 Triglycerides Level 92 Cholesterol Level 132 LDL Cholesterol 54 HDL Cholesterol 59.7 Cholesterol/HDL Ratio 2.21 Rheumatoid Factor Screen NEGATIVE Rheumatoid Factor Titer Urine Color YELLOW Urine Turbidity CLEAR Urine pH 6.0 Urine Specific [place] 1.018 Urine Protein NEG Urine Glucose (UA) 1000 Urine Ketones NEG Urine Occult Blood NEG Urine Nitrite NEG Urine Bilirubin NEG Urine Urobilinogen LESS THAN 2.0 Urine Leukocyte Esterase NEG Urine RBC LESS THAN 1 Urine WBC LESS THAN 1 Urine Mucus FEW Microscopic Urinalysis Comment CATH-CULT NOT IND Urine Opiates Screen NEG Urine Barbiturates Screen NEG Urine Amphetamines Screen NEG Urine Benzodiazepines Screen NEG Urine Cocaine Screen NEG Urine Cannabinoids Screen NEG Erythrocyte Sedimentation Rate 10 Hemoglobin A1c 6.5 Direct Bilirubin 0.2 Indirect Bilirubin 0.4 C-Reactive Protein 0.54 Vitamin B12 Level 373 Thyroid Stimulating Hormone 0.795 3rd Gen Lactic Acid Level 2.1 Test 11/11/16 06:46 White Blood Count 7.0 Red Blood Count 4.73 Hemoglobin 14.5 Hematocrit 42.1 Mean Corpuscular Volume 89.0 Mean Corpuscular Hemoglobin 30.7 Mean Corpuscular Hemoglobin 34.5 Concent Red Cell Distribution Width 12.1 Platelet Count 253 Mean Platelet Volume 9.3 Neutrophils (%) (Auto) 68.0 Lymphocytes (%) (Auto) 20.5 Monocytes (%) (Auto) 7.2 Eosinophils (%) (Auto) 3.2 Basophils (%) (Auto) 1.1 Neutrophils # (Auto) 4.7 Lymphocytes # (Auto) 1.4 Monocytes # (Auto) 0.5 Eosinophils # (Auto) 0.2 Basophils # (Auto) 0.1 CBC Comment DIFF FINAL Differential Comment Prothrombin Time 11.0 Prothromb Time International 1.0 Ratio Date/Time Procedure Status Source Growth 11/10/16 19:48 Aerobic Blood Culture Received Blood Peripheral Pending 11/10/16 19:48 Anaerobic Blood Culture Received Blood Peripheral Pending Problem Qualifiers (1) Seizure disorder, complex partial: Cuong Alvarez MD November 11, 2016 08:01
[2016-11-11 08:03] LABS: ALKALINE PHOSPHATASE 61 U/L (45-117); TOTAL BILIRUBIN ADULT 0.6 MG/DL (0.2-1.0)
[2016-11-11] MEDS: SODIUM CHLORIDE 0.9% FLUSH 10 ML FLUSH IV FLUSH SCH ×2 (08:03→21:14)
[2016-11-11] MEDS ORDERED: LORazepam 2 MG/ML VIAL IVS PRN (08:15)
[2016-11-11 10:11] LABS: RAPID PLASMA REAGIN SCREEN NON-REACTIVE (NON-REACTVE)
--- NOTE | 2016-11-11 10:24 | HHI.FPPN ---
Addendum to progress note ADDENDUM Additional information Patient has been having strokes, concern for encephalitis. LP is an emergency. This is an emergency because he could have an infectious etiology. If this is embolic, holding aspirin until Wednesday he could have emboli and worsening clinical condition with additional strokes. Took aspirin 325mg yesterday Per Up To Date, Aspirin is not an increased bleeding risk with LP. DW radiology and can perform LP today DW patients father who understands above and also that there could be increased risk of bleeding, and is in agreement. Katey Shah Dr., MD November 11, 2016 10:23
--- NOTE | 2016-11-11 10:37 | ETE ---
Study Study Date:11/10/2016 STUDY CONCLUSIONS SUMMARY - Procedure narrative: Bubble study was negative for ASD/PFO. - Left ventricle: The cavity size was normal. Wall thickness was normal. Systolic function was normal. The estimated ejection fraction was in the range of 55% to 60%. Wall motion was normal; there were no regional wall motion abnormalities. - Mitral valve: There is an ECHO density on the papillary muscle of the medial leaflet, consistent with calcium though endocarditis can not be compeletely excluded. If LV function is below 40, please consider prescribing an ACEI or ARB or document rationale for non-use. PROCEDURE DATA STUDY STATUS: Elective. Procedure: Transthoracic echocardiography. Image quality was good. Scanning was performed from the parasternal, apical, and subcostal acoustic windows. Bubble study was negative for ASD/PFO. Study completion: The patient tolerated the procedure well. Transthoracic echocardiography. M-mode, complete 2D, complete spectral Doppler, and color Doppler. Patient status: Inpatient. CARDIAC ANATOMY LEFT VENTRICLE: The cavity size was normal. Wall thickness was normal. Systolic function was normal. The estimated ejection fraction was in the range of 55% to 60%. Wall motion was normal; there were no regional wall motion abnormalities. AORTIC VALVE: Trileaflet; normal thickness leaflets. Doppler: Transvalvular velocity was within the normal range. There was no stenosis. No regurgitation. AORTA: Aortic root: The aortic root was normal in size. MITRAL VALVE: There is an ECHO density on the papillary muscle of the medial leaflet, consistent with calcium though endocarditis can not be compeletely excluded. Structurally normal valve. Doppler: Transvalvular velocity was within the normal range. There was no evidence for stenosis. No regurgitation. Mean gradient: 2mm Hg (D). Peak gradient: 5mm Hg (D). LEFT ATRIUM: The atrium was normal in size. RIGHT VENTRICLE: The cavity size was normal. Wall thickness was normal. PULMONIC VALVE: Doppler: Transvalvular velocity was within the normal range. There was no evidence for stenosis. No regurgitation. TRICUSPID VALVE: Structurally normal valve. Doppler: Transvalvular velocity was within the normal range. No regurgitation. PULMONARY ARTERY: The main pulmonary artery was normal-sized. Systolic pressure was within the normal range. RIGHT ATRIUM: The atrium was normal in size. PERICARDIUM: There was no pericardial effusion. SYSTEMIC VEINS: Inferior vena cava: The vessel was normal in size. BASIC MEASUREMENTS ADULT Normal Left ventricle LV internal dimension, ED, chordal level, *40.6 mm 43-52 PLAX LV internal dimension, ES, chordal level, 30.3 mm 23-38 PLAX Fractional shortening, chordal level, PLAX *25 % >29 LV posterior wall thickness, ED 5.09 mm IVS/LVPW ratio, ED 1.2 <1.3 Ventricular septum Septal thickness, ED 6.1 mm Aortic valve Leaflet separation 19 mm 15-26 Left atrium Anterior-posterior dimension 25 mm Right ventricle RV internal dimension, ED, PLAX 23.6 mm 19-38 BASIC MEASUREMENTS ADULT Normal Aortic valve Leaflet separation 19 mm 15-26 Aorta Root diameter, ED 27 mm 20-37 DOPPLER MEASUREMENTS ADULT Normal Main pulmonary artery Pressure, S 25 mm Hg =30 Aortic valve Peak velocity, S 145 cm/s VTI, S 32.8 cm Mitral valve Peak E-wave velocity 94.3 cm/s Peak A-wave velocity 67.6 cm/s Mean velocity, D 65.9 cm/s Mean gradient, D 2 mm Hg Peak gradient, D 5 mm Hg Peak E/A ratio 1.4 Tricuspid valve Regurgitant peak velocity 223 cm/s Peak RV-RA gradient, S 20 mm Hg Maximal regurgitant velocity 223 cm/s Systemic veins Estimated CVP 5 mm Hg Right ventricle RV pressure, S 25 mm Hg <30 LEGEND: Mean values are shown as u=mean value. Asterisk (*) brown values outside specified normal range. Amended Rebecca Montalvo [id number]
--- NOTE | 2016-11-11 11:08 | EKG ---
Date Performed: 11/10/2016 Time Performed: 11:41:16 PTAGE: 21 years EKG: SINUS TACHYCARDIA WITH SHORT UT INTERVAL ABNORMAL RHYTHM ECG NO PREVIOUS TRACING DOCTOR: Bebeto Kaiser Interpretating Date/Time 11/11/2016 11:06:28
--- NOTE | 2016-11-11 11:17 | HHI.HP ---
[facility] Service Family Medicine Primary Care Physician Charlie Juarez MD Admission Diagnosis CVA, probable embolic Diagnoses: (1) Multifocal neurological deficit Diagnosis: Principal (2) T2DM (type 2 diabetes mellitus) Diagnosis: Principal International Travel<30 Days: No Contact w/Intl Traveler<30days: No Known Affected Area: No History of Present Illness Mr Morales is a 21 year old male sent to the ED by his neurologist in [place] for further evaluation following an MRI brain w/ and w/o from 11/06 with findings showing multifocal areas of acute cortical infarction involving the left posterior parietal, left medial occipital, bilateral temporal lobes with no acute hemorrhage noted. Parents state he was previously healthy prior to 2016. At that time, the patient was at college in [place], [place] and his parents report he called them over the phone due to having slurred speech. Parents state the only other symptom he had at that time was of a headache. Patient did not have any motor weakness or cognitive deficit that they know of. They state he was evaluated by a physician shortly after that, had a CT scan in July which they state was normal. He was later evaluated by an housecleaner floor during spring in August and diagnosed with T2DM; patient had an HbA1c of 10.8. He was then started on Metformin. During spring he also had a complete physical examination by his PCP as well as basic lab workup which parents state were all normal. Parents state he was at his baseline healthy status and functioning well without any speech, motor, or cognitive deficit. He visited home again during and was fine at that time. Parents state near the end of September he called his parents again and stated he had difficulty comprehending his final exam. He also starting becoming more confused at this time and parents state he could only understand a few things. Patient was able to graduate college with a degree in criminal justice but parents state he remained so confused he needed close assistance to be able to walk across the stage at graduation. Patient has been living with his parents the past couple weeks and parents report his cognitive status has continued to slowly decline over this time period. They also report he first had motor weakness earlier today when his balance was off. Parents do state he has exposure to ticks. They previously had a [employer] [place] [employer] dog and he would help to get ticks off the dog. However they state to their knowledge he was never bitten by a tick. They deny him every using IV drugs. They state he is not sexually active. No h/o syphilis. They deny any fevers, chills, or night sweats at any time since his symptoms first appeared in July. Overnight, he is stable roughly with some unusual sxs including yesterday he was seeing a nonexistent person at the far corner of his right gaze. He today is counting three people and three objects in the room. He had multiple tests and has the areas of infarct seen bilaterally mainly temporoparietal. Per reports, his carotids and blood vessels look fine. Per echo, a bubble test did not show PFO. There was some question of a calcification or vegetation on the papillary muscle of the mitral valve. An LP was performed to assess for infection. Review of Systems Other Constitutional: COMPLAINS OF: Weight loss, DENIES: Fever, Chills, Night Sweats Respiratory: DENIES: Cough, Shortness of breath Cardiovascular: DENIES: Chest pain Gastrointestinal: DENIES: Bloody stools Genitourinary: DENIES: Hematuria Integumentary: DENIES: Rash Neurologic: COMPLAINS OF: Headache, Speech Problems, DENIES: Localized weakness, Seizures Psychiatric: COMPLAINS OF: Anxiety, Confusion Other ROS provided by parents Past Family Social History Past Medical History Parents report he was treated for meningitis at 2 weeks of age, LP was negative for bacterial etiology per parents Needed hearing aids beginning at about [age] years of age, parents report a work up was done at that time including an MRI brain which was normal T2DM diagnosed 08/2016 Past Surgical History [place] teeth extraction Allergies: Coded Allergies: No Known Allergies (Unverified , 11/10/16) Family History MGM: DM onset in 60s MGF: NM early 60s, vascular dementia, MS onset reportedly in 70s PGF: CHF PGM: Alzheimer's Per parents no known FH of autoimmune disorders or coagulopathies Social History Patient lived in [place] up through high school, then moved to [place] with his parents Parents state he has no h/o IVDA or cigarette smoking Rare etoh intake on social occasions only Parents do not think he is sexually active No other sick contacts No recent travel out of country or state No recent camping trips Physical Exam Vital Signs Vital Signs Date Time Temp Pulse Resp B/P Pulse Ox O2 Delivery O2 Flow Rate FiO2 11/11/16 08:29 98.0 109 22 123/77 97 11/11/16 08:00 85 11/11/16 04:00 96.7 90 18 117/65 96 11/11/16 00:00 98.0 97 18 139/78 96 11/10/16 20:33 102 11/10/16 20:00 98.2 106 18 145/80 96 11/10/16 18:03 91 15 137/84 97 Room Air 11/10/16 16:00 97 14 135/87 97 Room Air 11/10/16 12:00 102 14 137/87 97 Room Air Physical Exam GENERAL: NAD, lying in bed, repeatedly looks over his right shoulder but will turn to the left with his gaze if prompted NEURO: Limited due to cognitive status. Patient is alert. Oriented to person. Does not follow most commands. Speech is clearer and more fluent today. There are some cranial nerve deficits, difficult to assess as patient does not follow all commands. Left eyebrow raise decreased. Visual block are unable to be tested. Does not cooperate to assess strength or sensory. Gait not tested. SKIN: Warm and dry. No rashes or erythema. HEAD: Normocephalic. Atraumatic. EYES: PERRL. EOMI. No scleral icterus. No injection or drainage. ENT: Bilateral hearing aids in place. No nasal drainage. Moist mucous membranes. No oral ulcers or lesions. NECK: Supple, trachea midline. No JVD or lymphadenopathy. CARDIOVASCULAR: Regular rate and rhythm without murmurs, rubs, gallops, or plops. Peripheral pulses 2+. Capillary refill < 2 seconds. RESPIRATORY: Breath sounds clear to auscultation and equal bilaterally, without wheezes, rales, or rhonchi. No accessory muscle use. GASTROINTESTINAL: Abdomen soft, nontender, nondistended, normal BS. No organomegaly or masses. No rebound tenderness. No guarding. MUSCULOSKELETAL: No edema, cyanosis, or clubbing. BACK: Nontender without obvious deformity. Laboratory Laboratory Tests Test 11/10/16 11/10/16 11/10/16 11/10/16 11:20 12:55 19:48 22:45 White Blood Count 8.6 Red Blood Count 4.67 Hemoglobin 14.7 Hematocrit 41.5 Mean Corpuscular Volume 88.7 Mean Corpuscular Hemoglobin 31.4 Mean Corpuscular Hemoglobin 35.4 Concent Red Cell Distribution Width 12.1 Platelet Count 263 Mean Platelet Volume 9.6 Neutrophils (%) (Auto) 74.6 Lymphocytes (%) (Auto) 15.3 Monocytes (%) (Auto) 6.0 Eosinophils (%) (Auto) 3.1 Basophils (%) (Auto) 1.0 Neutrophils # (Auto) 6.4 Lymphocytes # (Auto) 1.3 Monocytes # (Auto) 0.5 Eosinophils # (Auto) 0.3 Basophils # (Auto) 0.1 CBC Comment DIFF FINAL Differential Comment Prothrombin Time 10.5 10.9 Prothromb Time International 1.0 1.0 Ratio Activated Partial 26.3 28.0 Thromboplast Time Sodium Level 136 Potassium Level 4.4 Chloride Level 101 Carbon Dioxide Level 26.0 Anion Gap 9 Blood Urea Nitrogen 29 Creatinine 0.92 Estimat Glomerular Filtration 103 Rate Random Glucose 214 Calcium Level 9.6 Total Bilirubin 0.4 0.6 Aspartate Amino Transf 51 60 (AST/SGOT) Alanine Aminotransferase 69 77 (ALT/SGPT) Alkaline Phosphatase 78 64 Total Creatine Kinase 293 196 Troponin I LESS THAN 0.02 Total Protein 7.3 6.9 Albumin 4.1 4.0 Triglycerides Level 92 Cholesterol Level 132 LDL Cholesterol 54 HDL Cholesterol 59.7 Cholesterol/HDL Ratio 2.21 Rheumatoid Factor Screen NEGATIVE Rheumatoid Factor Titer Rapid Plasma Reagin NON-REACTIVE Urine Color YELLOW Urine Turbidity CLEAR Urine pH 6.0 Urine Specific [place] 1.018 Urine Protein NEG Urine Glucose (UA) 1000 Urine Ketones NEG Urine Occult Blood NEG Urine Nitrite NEG Urine Bilirubin NEG Urine Urobilinogen LESS THAN 2.0 Urine Leukocyte Esterase NEG Urine RBC LESS THAN 1 Urine WBC LESS THAN 1 Urine Mucus FEW Microscopic Urinalysis Comment CATH-CULT NOT IND Urine Opiates Screen NEG Urine Barbiturates Screen NEG Urine Amphetamines Screen NEG Urine Benzodiazepines Screen NEG Urine Cocaine Screen NEG Urine Cannabinoids Screen NEG Erythrocyte Sedimentation Rate 10 Hemoglobin A1c 6.5 Direct Bilirubin 0.2 Indirect Bilirubin 0.4 C-Reactive Protein 0.54 Vitamin B12 Level 373 Thyroid Stimulating Hormone 0.795 3rd Gen Lactic Acid Level 2.1 Test 11/11/16 06:46 White Blood Count 7.0 Red Blood Count 4.73 Hemoglobin 14.5 Hematocrit 42.1 Mean Corpuscular Volume 89.0 Mean Corpuscular Hemoglobin 30.7 Mean Corpuscular Hemoglobin 34.5 Concent Red Cell Distribution Width 12.1 Platelet Count 253 Mean Platelet Volume 9.3 Neutrophils (%) (Auto) 68.0 Lymphocytes (%) (Auto) 20.5 Monocytes (%) (Auto) 7.2 Eosinophils (%) (Auto) 3.2 Basophils (%) (Auto) 1.1 Neutrophils # (Auto) 4.7 Lymphocytes # (Auto) 1.4 Monocytes # (Auto) 0.5 Eosinophils # (Auto) 0.2 Basophils # (Auto) 0.1 CBC Comment DIFF FINAL Differential Comment Prothrombin Time 11.0 Prothromb Time International 1.0 Ratio Sodium Level 135 Potassium Level 4.6 Chloride Level 100 Carbon Dioxide Level 28.1 Anion Gap 7 Blood Urea Nitrogen 22 Creatinine 0.82 Estimat Glomerular Filtration 117 Rate Random Glucose 168 Calcium Level 9.1 Total Bilirubin 0.6 Aspartate Amino Transf 46 (AST/SGOT) Alanine Aminotransferase 69 (ALT/SGPT) Alkaline Phosphatase 61 Total Protein 7.0 Albumin 3.8 Phenytoin (Dilantin) Level 26.0 Date/Time Procedure Status Source Growth 11/10/16 19:48 Aerobic Blood Culture - Preliminary Resulted Blood Peripheral NO GROWTH IN 1 DAY 11/10/16 19:48 Anaerobic Blood Culture - Preliminary Resulted Blood Peripheral NO GROWTH IN 1 DAY Result Diagram: 11/11/16 0646 11/11/16 0646 Imaging Last 48 hours Impressions Chest X-Ray 11/10/16 1111 Signed Impressions: Service Date/Time: Thursday, November 10, 2016 11:20 - CONCLUSION: No acute disease. Archie Denise MD Neck CTA 11/10/16 0000 Signed Impressions: Service Date/Time: Thursday, November 10, 2016 13:55 - CONCLUSION: 1. Negative examination of the carotid arteries Jorge Kearney MD Head Magnetic Resonance Angiography 11/10/16 0000 Signed Impressions: Service Date/Time: Thursday, November 10, 2016 15:06 - CONCLUSION: 1. Unremarkable MR angiography of the brain. Jorge Kearney MD Head CTA 11/10/16 0000 Signed Impressions: Service Date/Time: Thursday, November 10, 2016 13:55 - CONCLUSION: No stenosis, thrombus or aneurysm. Normal variants as described above. Archie Denise MD Head CT 11/10/16 0000 Signed Impressions: Service Date/Time: Thursday, November 10, 2016 13:49 - CONCLUSION: 1. Acute left temporoparietal infarction.In a patient of this age emboli should be considered both bland and septic. Echocardiography should be considered Jorge Kearney MD Brain MRI 11/10/16 0000 Signed Impressions: Service Date/Time: Thursday, November 10, 2016 15:06 - CONCLUSION: 1. Acute nonhemorrhagic infarction involving the left temporal parietal lobe. 2. Abnormal signal involving both temporal lobes and right parietal lobe. These areas are not consistent with infarction. The findings would suggest global hypoxia. Infectious encephalitis could have a similar appearance but is felt less likely. Charlie Salas Jr., MD Assessment and Plan Assessment and Plan 21 year old male with recent diagnosis of T2DM in 08/2016 but otherwise healthy sent to the ED by his neurologist for further evaluation following an MRI brain w/ and w/o from 11/06 with findings showing multifocal areas of acute cortical infarction involving the left posterior parietal, left medial occipital, bilateral temporal lobes with no acute hemorrhage noted. Etiology is unclear at this time, includes infectious causes, structural heart disease, PFO, atrial myxoma, endocarditis if any unreported IV drug use, hypercoagulability disorder , vs embolic phenomenon due to another cause. Problem List: (1) Multifocal neurological deficit Status: Acute Plan: - Imaging obtained as above, significant for acute nonhemorrhagic infarction involving the left temporal and parietal lobe, abnormal signals not c /w infarction, findings suggestive of global hypoxia, infectious encephalitis to be considered in the differential as well as MELAS or embolic etiology - Neurology consulted. Dr. Alvarez was informed of the case via phone, recommended imaging obtained above, appreciate recommendations - Cardiology consulted for possible structural heart disease as underlying cause , possible FRANKY, no PFO - EKG shows sinus tachycardia at 101 bpm - Hypercoagulability workup started, including factor 5, lupus anticoagulant, protein C and S, antithrombin - Hematology consulted, appreciate recommendations - Urine drug screen ordered in the case any IV drug use was unreported - Lyme serologies pending - AILYN pending - RF pending - RPR pending check hiv -ESR normal - Continuous telemetry - Neuro checks q4h - Monitor vitals q4h - OOB with assistance only - PT/OT - speech to check swallowing -aspirin daily -lp done, clear fluid (2) T2DM (type 2 diabetes mellitus) Status: Chronic Plan: Accuchecks ACHS Low-dose ISS because of his age, will check ultrasound to see if any problems with his pancreas Physician Certification 2 Midnight Certification Type: Admission for Inpatient Services Order for Inpatient Services The services are ordered in accordance with Medicare regulations or non- Medicare payer requirements, as applicable. In the case of services not specified as inpatient-only, they are appropriately provided as inpatient services in accordance with the 2-midnight benchmark. Estimated LOS (days): 5 5 days is the estimated time the patient will need to remain in the hospital, assuming treatment plan goals are met and no additional complications. Post-Hospital Plan: Not yet determined Problem Qualifiers (1) T2DM (type 2 diabetes mellitus): Qualified Code: E11.9 - Type 2 diabetes mellitus without complication, without long-term current use of insulin Carissa Trejo MD November 11, 2016 11:17
--- NOTE | 2016-11-11 11:20 | PD.RAD ---
Post Procedure Progress Note Pre Procedure Diagnosis: (1) Acute encephalopathy (2) Multifocal neurological deficit Post Procedure Diagnosis: (1) Multifocal neurological deficit (2) Acute encephalopathy Procedure Date: November 11, 2016 Supervising Radiologist: Dion Arauz Estimated blood loss: none Plan of Activity Patient to Unit: Other Patient Condition: Poor Additional Comments: LP completed without difficulty. 17.5 cc of clear CSF removed single puncture at L4/L5 See PACS Report for procedural detail/treatment Dion Arauz MD November 11, 2016 11:20
[2016-11-11 12:42] LABS: GROSS BLOOD TUBE #1 1+ (0); GROSS BLOOD TUBE #2 1+ (0); SUPERNATE COLOR TUBE #1 CLEAR (CLEAR); SUPERNATE COLOR TUBE #2 CLEAR (CLEAR)
[2016-11-11 12:43] LABS: CSF LYMPHOCYTES 71 %; CSF MONOCYTES 19 %; CSF NEUTROPHILS 10 %; GROSS BLOOD TUBE #3 TRACE (0); SUPERNATE COLOR TUBE #3 CLEAR (CLEAR); SUPERNATE COLOR TUBE #4 CLEAR (CLEAR); VOLUME TUBE # 3 4.5 ML; WBC TUBE #4 5 /MM3 (0-10)
[2016-11-11 12:48] LABS: GROSS BLOOD TUBE #4 TRACE (0)
--- NOTE | 2016-11-11 15:11 | RADRPT ---
EXAM DATE/TIME: 11/11/2016 11:10 [facility] COMPARISON: No previous studies available for comparison. INDICATIONS : Patient with AMS. Abnormal MRI MEDICAL HISTORY : 1. AMS 2. Bilateral hearing aids 3.DM 4. Meningitis 2wks of age SURGICAL HISTORY : 1. [place] teeth extraction ENCOUNTER: Initial ACUITY: 2 days PAIN SCORE: 0/10 LUMBAR PUNCTURE TIME: 1110 hours FLUORO TIME: 0.35 minutes IMAGE SERIES: 0 ACCESS LEVEL: L4-5 FLUID: 17.5 cc of clear CSF was collected and sent to the laboratory for analysis. PROCEDURE : 1. Fluoroscopic guided lumbar puncture. The risks, benefits and alternatives to the procedure were explained and verbal and written consent w as obtained. The site was prepped in sterile fashion. Full sterile technique was used, including ca p, mask, sterile gloves and gown and a large sterile sheet. Hand hygiene and 2% chlorhexidine and/or betadine/alcohol prep was utilized per protocol for cutaneous antisepsis. The skin and subcutaneous tissues were infiltrated with local anesthetic solution.With fluoroscopic guidance the lumbar thecal sac was punctured at the level above. The fluid described above was removed without difficulty. The patient tolerated the procedure well and there were no complications. CONCLUSION: Uncomplicated fluoroscopically guided lumbar puncture. Dion Arauz MD on November 11, 2016 at 15:09 Board Certified Radiologist. This report was verified electronically.
--- NOTE | 2016-11-11 16:49 | MG ---
cc: JOHN BOWDEN M.D. Lab No: Date: 11/11/2016 Age: Sex: M Race: REQUESTING PHYSICIAN Dr. Alvarez. An EEG was obtained on this 21-year-old patient with history of left hemisphere non hemorrhagic infarct and apparently on the right as well. MEDICATIONS 1. Cerebyx. 2. Acyclovir. DESCRIPTION The patient is awake and drowsy. The EEG shows left more than right hemisphere slowing. There are theta and delta rhythms. There are some associated probable sharp discharges left frontal central predominantly. There is no ictal abnormality. There are low amplitude beta rhythms. There is some alpha activity, the right more than left hemisphere. There is a lot of eye movement artifact. Photic stimulation shows some reactivity of the background possibly right more than left. INTERPRETATION Abnormal EEG because of left more than right hemisphere intermittent slowing with some associated sharp discharges with phase reversal. The findings suggest left more than right hemisphere structural abnormalities and associated epileptiform discharge, probably present out of the left frontal central head region. No ictal pattern. MD HOLLIE Wright/KK /4:16 PM /4:31 PM
--- NOTE | 2016-11-11 18:00 | RADRPT ---
EXAM DATE/TIME: 11/11/2016 15:58 [facility] COMPARISON: No previous studies available for comparison. INDICATIONS : Abdomen pain. MEDICAL HISTORY : Abdomen pain. Diabetes. Stroke. SURGICAL HISTORY : Right femur surgery. ENCOUNTER: Initial ACUITY: 1 day PAIN SCORE: Nonresponsive. LOCATION: Abdomen. MEASUREMENTS: LIVER: 12.4 cm length COMMON DUCT: 1 mm RIGHT KIDNEY: 11.9 x 4.8 x 4.6 cm LEFT KIDNEY: 11.8 x 5.0 x 5.0 cm SPLEEN: 8.2 cm length AORTA: 1.7cm maximal FINDINGS: LIVER: Normal echotexture without focal lesion or ductal dilatation. COMMON DUCT: No intraluminal mass or stone visualized. GALLBLADDER: Contains no stones, demonstrates no wall thickening or pericholecystic fluid. PANCREAS: The visualized portions are within normal limits. RIGHT KIDNEY: No hydronephrosis, stone or mass. LEFT KIDNEY: No hydronephrosis, stone or mass. SPLEEN: No focal lesion. AORTA: Non aneurysmal. IVC: Within normal limits. CONCLUSION: 1. Unremarkable ultrasound examination of the abdomen. Jorge Kearney MD on November 11, 2016 at 17:57 Board Certified Radiologist. This report was verified electronically.
[2016-11-11 21:03] LABS: APTT (PATIENT) 26.1 SEC (24.3-30.1)
[2016-11-12] VITALS (8 sets, daily range): BP systolic 112–137; BP diastolic 68–94; PULSE 68–121; RESP 16–18; TEMP 97.8–99.9; O2SAT 96–97
--- NOTE | 2016-11-12 00:37 | PD.ONC.PN ---
Subjective Subjective Remarks LATE NOTE ENTRY PATIENT SEEN EARLIER ON 11/11 clinically the same Heparin GTT started. Objective Data Date Time Temp Pulse Resp B/P Pulse Ox O2 Delivery O2 Flow Rate FiO2 11/11/16 22:50 96.4 66 20 154/67 97 11/11/16 20:00 98.5 114 20 129/79 97 11/11/16 19:44 120 11/11/16 15:30 98.8 106 22 131/75 97 11/11/16 08:29 98.0 109 22 123/77 97 11/11/16 08:00 85 11/11/16 04:00 96.7 90 18 117/65 96 Result Diagram: 11/11/16 0646 11/11/16 0646 Laboratory Results Laboratory Tests Test 11/11/16 11/11/16 11/11/16 06:46 11:10 20:15 White Blood Count 7.0 TH/MM3 Red Blood Count 4.73 MIL/MM3 Hemoglobin 14.5 GM/DL Hematocrit 42.1 % Mean Corpuscular Volume 89.0 FL Mean Corpuscular Hemoglobin 30.7 PG Mean Corpuscular Hemoglobin 34.5 % Concent Red Cell Distribution Width 12.1 % Platelet Count 253 TH/MM3 Mean Platelet Volume 9.3 FL Neutrophils (%) (Auto) 68.0 % Lymphocytes (%) (Auto) 20.5 % Monocytes (%) (Auto) 7.2 % Eosinophils (%) (Auto) 3.2 % Basophils (%) (Auto) 1.1 % Neutrophils # (Auto) 4.7 TH/MM3 Lymphocytes # (Auto) 1.4 TH/MM3 Monocytes # (Auto) 0.5 TH/MM3 Eosinophils # (Auto) 0.2 TH/MM3 Basophils # (Auto) 0.1 TH/MM3 CBC Comment DIFF FINAL Differential Comment Prothrombin Time 11.0 SEC 11.0 SEC Prothromb Time International 1.0 RATIO 1.0 RATIO Ratio Sodium Level 135 MEQ/L Potassium Level 4.6 MEQ/L Chloride Level 100 MEQ/L Carbon Dioxide Level 28.1 MEQ/L Anion Gap 7 MEQ/L Blood Urea Nitrogen 22 MG/DL Creatinine 0.82 MG/DL Estimat Glomerular Filtration 117 ML/MIN Rate Random Glucose 168 MG/DL Calcium Level 9.1 MG/DL Total Bilirubin 0.6 MG/DL Aspartate Amino Transf 46 U/L (AST/SGOT) Alanine Aminotransferase 69 U/L (ALT/SGPT) Alkaline Phosphatase 61 U/L Total Protein 7.0 GM/DL Albumin 3.8 GM/DL Phenytoin (Dilantin) Level 26.0 MCG/ML CSF Volume (Tube 1) 4.0 ML CSF Supernatant Color (tube 1) CLEAR CSF Gross Blood (Tube 1) 1+ CSF Volume (Tube 2) 4.0 ML CSF Supernatant Color (tube 2) CLEAR CSF Gross Blood (Tube 2) 1+ CSF Volume (Tube 3) 4.5 ML CSF Supernatant Color (tube 3) CLEAR CSF Gross Blood (Tube 3) TRACE CSF Volume (Tube 4) 4.0 ML CSF Supernatant Color (tube 4) CLEAR CSF Gross Blood (Tube 4) TRACE CSF WBC (Tube 4) 5 /MM3 CSF RBC (Tube 4) 252 /MM3 CSF Neutrophils 10 % CSF Lymphocytes 71 % CSF Monocytes 19 % CSF Glucose 98 MG/DL CSF Lactic Acid 6.0 MMOL/L CSF Total Protein 64.1 MG/DL Activated Partial 26.1 SEC Thromboplast Time Culture Results Microbiology Date/Time Procedure Status Source Growth 11/10/16 19:34 Aerobic Blood Culture - Preliminary Resulted Blood Peripheral NO GROWTH IN 1 DAY 11/10/16 19:34 Anaerobic Blood Culture - Preliminary Resulted Blood Peripheral NO GROWTH IN 1 DAY 11/10/16 19:48 Aerobic Blood Culture - Preliminary Resulted Blood Peripheral NO GROWTH IN 1 DAY 11/10/16 19:48 Anaerobic Blood Culture - Preliminary Resulted Blood Peripheral NO GROWTH IN 1 DAY 11/11/16 11:10 Gram Stain - Final Resulted Cerebral Spinal Fluid Lumbar Puncture 11/11/16 11:10 CSF Culture Resulted Cerebral Spinal Fluid Lumbar Puncture Pending Administered Medications Medications (Trade) Dose Ordered Sig/Liliya Route PRN Reason Start Time Stop Time Status Last Admin Dose Admin Sodium Chloride (NS Flush) 2 ml BID IV FLUSH 11/10/16 13:30 11/11/16 21:14 Fosphenytoin Sodium 200 mgpe 200 mgpe Q12HR IV 11/10/16 21:00 11/11/16 07:59 Acyclovir Sodium/ Sodium Chloride (Zovirax Inj/NS Inj) 100 ml @ 100 mls/hr Q8H IV 11/10/16 18:00 11/28/16 09:00 11/11/16 16:24 Objective Remarks GENERAL: nad SKIN: Warm and dry. NECK: Supple, trachea midline. No JVD or lymphadenopathy. LYMPHATIC: No adenopathy. CARDIOVASCULAR: Regular rate and rhythm without murmurs. RESPIRATORY: Breath sounds equal bilaterally. No accessory muscle use. GASTROINTESTINAL: Abdomen soft, non-tender, nondistended. EXTREMITIES: No cyanosis, or edema. Assessment/Plan Problem List: (1) CVA (cerebral vascular accident) Status: Acute (2) Seizure disorder, complex partial Status: Acute (3) Acute embolic stroke within last 8 weeks Status: Acute (4) Acute encephalopathy Status: Acute (5) Multifocal neurological deficit Status: Acute Assessment 21-year-old male with no significant past medical history who presents to the emergency department with acute encephalopathy/confusion/decline in cognitive functioning and acute brain infarction. Hematology has been consulted to make further recommendations in this patient who has developed a CVA at an early age. 1. Acute stroke/encephalopathy: - Heparin GTT - Neurological w/u including LP completed - Hypercoagulable w/u pending - will follow. Problem Qualifiers (1) CVA (cerebral vascular accident): Qualified Code: I63.9 - Cerebrovascular accident (CVA), unspecified mechanism (2) Seizure disorder, complex partial: Kb Burnham MD November 12, 2016 00:37
[2016-11-12] MEDS: ACYCLOVIR INJ 500 MG in SODIUM CHLORIDE 0.9% INJ 100 ML IV SCH ×3 (02:23→18:10)
[2016-11-12] MEDS: INSULIN ASPART SUPPLEMENTAL SCALE SQ SCH ×4 (07:00→21:53)
[2016-11-12 08:55] LABS: AUTOMATED NEUTROPHIL # 6.1 TH/MM3 (1.8-7.7); BASOPHIL # 0.1 TH/MM3 (0-0.2); BASOPHIL % 0.6 % (0.0-2.0); EOSINOPHIL # 0.1 TH/MM3 (0-0.4); EOSINOPHIL % 1.7 % (0.0-4.0); HEMATOCRIT 43.5 % (39.0-51.0); HEMO FLAGS DIFF FINAL; LYMPH % 19.7 % (9.0-44.0); LYMPHOCYTE # 1.7 TH/MM3 (1.0-4.8); MEAN CELL VOLUME 88.9 FL (80.0-100.0); MEAN CORPUSCULAR HEMOGLOBIN 30.3 PG (27.0-34.0); MEAN CORPUSCULAR HGB CONC 34.1 % (32.0-36.0); MONO % 9.2 % (0.0-8.0); NEUT % 68.8 % (16.0-70.0); PLATELET COUNT 276 TH/MM3 (150-450); RED BLOOD COUNT 4.89 MIL/MM3 (4.50-5.90); RED CELL DISTRIBUTION WIDTH 12.1 % (11.6-17.2); WHITE BLOOD COUNT 8.8 TH/MM3 (4.0-11.0)
[2016-11-12] MEDS: SODIUM CHLORIDE 0.9% FLUSH 10 ML FLUSH IV FLUSH SCH ×2 (09:00→21:45)
--- NOTE | 2016-11-12 09:01 | HHI.PR ---
Review/Management Diagnosis/Plan: (1) Acute encephalopathy Plan: bihemispheric lesions +dwi on left temporal young age etiology: infarct/infectious/inflammatory-cerebritis/mitochondrial d/o (melas?) vessels nml csf- no sign of infection; elevation in protein, lactic acid; however multiple studies pending elevated lactic acid in csf and blood recs hypercoag state-pending eeg-+sz focus bilateral check pyruvate levels check reversal print inspector brain for lactate peak aspirin; would hold off on hep gtt for now iv cerebryx-held 2/2 elevated levels iv acyclovir-d/c follow exam d/w parents will need alot of rehab; possibly [facility] (2) Acute embolic stroke within last 8 weeks (3) Seizure disorder, complex partial Plan: 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 eeg iv cerebryx Subjective Subjective Comments had a few small episodes of rt head versive turning No headache No chest pain No dyspnea Active Medications Current Medications Medications (Trade) Dose Ordered Sig/Liliya Route Start Time Stop Time Status Last Admin (NS Flush) 2 ml UNSCH PRN IV FLUSH 11/10/16 13:30 (NS Flush) 2 ml BID IV FLUSH 11/10/16 13:30 11/11/16 21:14 (Narcan Inj) 0.4 mg UNSCH PRN IV 11/10/16 13:30 Fosphenytoin Sodium 200 mgpe 200 mgpe Q12HR IV 11/10/16 21:00 11/11/16 07:59 (Zovirax Inj/NS Inj) 100 ml @ 100 mls/hr Q8H IV 11/10/16 18:00 11/28/16 09:00 11/12/16 02:23 (Aspirin) 325 mg DAILY PO 11/11/16 12:00 Hold (D50w (Vial) Inj) 25 ml UNSCH PRN IV PUSH 11/10/16 19:00 (Glucagon Inj) 1 mg UNSCH PRN OTHER 11/10/16 19:00 Lorazepam 1 mg 1 mg Q6HR PRN IVS 11/11/16 08:15 (Heparin-D5W Inj) 250 ml @ 0 mls/hr TITRATE IV 11/12/16 13:00 Allergies Allergies Coded Allergies No Known Allergies (Unverified11/10/16) Review of Systems All other ROS: ROS reviewed as documented in chart Exam I&O / VS 11/11/16 11/11/16 11/12/16 15:00 23:00 07:00 Intake Total 240 ml 220 ml Balance 240 ml 220 ml Intake Oral 240 ml 120 ml IV Total 100 ml # Voids 1 2 # Bowel Movements 0 0 Vital Signs Date Time Temp Pulse Resp B/P Pulse Ox O2 Delivery O2 Flow Rate FiO2 11/12/16 08:00 98.2 85 18 112/70 97 11/12/16 04:00 97.8 93 18 115/68 97 11/11/16 22:50 96.4 66 20 154/67 97 11/11/16 20:00 98.5 114 20 129/79 97 11/11/16 19:44 120 11/11/16 15:30 98.8 106 22 131/75 97 Exam Comments alert, sitting up, able to tell me his name, follows some simple request, + ideomotor apraxia, dysnomia, eomi, tracking, +blink to threat, localizes with all 4 ext, msr 1-2+, no clonus, planterflexor Objective Micro and Labs Laboratory Tests Test 11/11/16 11/11/16 11/12/16 11:10 20:15 08:33 CSF Volume (Tube 1) 4.0 CSF Supernatant Color (tube 1) CLEAR CSF Gross Blood (Tube 1) 1+ CSF Volume (Tube 2) 4.0 CSF Supernatant Color (tube 2) CLEAR CSF Gross Blood (Tube 2) 1+ CSF Volume (Tube 3) 4.5 CSF Supernatant Color (tube 3) CLEAR CSF Gross Blood (Tube 3) TRACE CSF Volume (Tube 4) 4.0 CSF Supernatant Color (tube 4) CLEAR CSF Gross Blood (Tube 4) TRACE CSF WBC (Tube 4) 5 CSF RBC (Tube 4) 252 CSF Neutrophils 10 CSF Lymphocytes 71 CSF Monocytes 19 CSF Glucose 98 CSF Lactic Acid 6.0 CSF Total Protein 64.1 Prothrombin Time 11.0 Prothromb Time International 1.0 Ratio Activated Partial 26.1 Thromboplast Time White Blood Count 8.8 Red Blood Count 4.89 Hemoglobin 14.8 Hematocrit 43.5 Mean Corpuscular Volume 88.9 Mean Corpuscular Hemoglobin 30.3 Mean Corpuscular Hemoglobin 34.1 Concent Red Cell Distribution Width 12.1 Platelet Count 276 Mean Platelet Volume 9.2 Neutrophils (%) (Auto) 68.8 Lymphocytes (%) (Auto) 19.7 Monocytes (%) (Auto) 9.2 Eosinophils (%) (Auto) 1.7 Basophils (%) (Auto) 0.6 Neutrophils # (Auto) 6.1 Lymphocytes # (Auto) 1.7 Monocytes # (Auto) 0.8 Eosinophils # (Auto) 0.1 Basophils # (Auto) 0.1 CBC Comment DIFF FINAL Differential Comment Date/Time Procedure Status Source Growth 11/11/16 11:10 Gram Stain - Final Resulted Cerebral Spinal Fluid Lumbar Puncture 11/11/16 11:10 CSF Culture - Preliminary Resulted Cerebral Spinal Fluid Lumbar Puncture NO GROWTH IN 24 HOURS. 11/10/16 19:48 Aerobic Blood Culture - Preliminary Resulted Blood Peripheral NO GROWTH IN 1 DAY 11/10/16 19:48 Anaerobic Blood Culture - Preliminary Resulted Blood Peripheral NO GROWTH IN 1 DAY Problem Qualifiers (1) Seizure disorder, complex partial: Cuong Alvarez MD November 12, 2016 09:01
[2016-11-12 09:51] LABS: ALKALINE PHOSPHATASE 67 U/L (45-117); ALT (GPT) 59 U/L (12-78); ANION GAP 11 MEQ/L (5-15); AST (GOT) 28 U/L (15-37); BLOOD UREA NITROGEN 27 MG/DL (7-18); CHLORIDE 99 MEQ/L (98-107); GLOMERULAR FILTRATION RATE 98 ML/MIN (>89); POTASSIUM 4.2 MEQ/L (3.5-5.1); SODIUM (NA) 140 MEQ/L (136-145); TOTAL BILIRUBIN ADULT 0.6 MG/DL (0.2-1.0)
--- NOTE | 2016-11-12 09:56 | HHI.FPPN ---
Subjective Remarks Discussed with parents and sister at bedside. No new changes. Patient states he feels well. Continues to not follow most commands. However, he is clear on some details such as Red Sox score. Review of systems Limited secondary to current state. (Yasir Govea MD R2) Objective Vitals Vital Signs Date Time Temp Pulse Resp B/P Pulse Ox O2 Delivery O2 Flow Rate FiO2 11/12/16 08:00 98.2 85 18 112/70 97 11/12/16 04:00 97.8 93 18 115/68 97 11/11/16 22:50 96.4 66 20 154/67 97 11/11/16 20:00 98.5 114 20 129/79 97 11/11/16 19:44 120 11/11/16 15:30 98.8 106 22 131/75 97 I/O 11/11/16 11/11/16 11/11/16 11/12/16 11/12/16 11/12/16 07:00 15:00 23:00 07:00 15:00 23:00 Intake Total 150 ml 240 ml 220 ml Balance 150 ml 240 ml 220 ml Intake Oral 240 ml 120 ml IV Total 150 ml 100 ml # Voids 2 1 2 # Bowel Movements 0 0 (Yasir Govea MD R2) Result Diagram: 11/12/16 0833 11/11/16 0646 Imaging Last Impressions Lumbar Puncture Fluoroscopy 11/11/16 0000 Signed Impressions: Service Date/Time: Friday, November 11, 2016 11:10 - CONCLUSION: Uncomplicated fluoroscopically guided lumbar puncture. Dion Arauz MD Abdomen Ultrasound 11/11/16 0000 Signed Impressions: Service Date/Time: Friday, November 11, 2016 15:58 - CONCLUSION: 1. Unremarkable ultrasound examination of the abdomen. Jorge Kearney MD Chest X-Ray 11/10/16 1111 Signed Impressions: Service Date/Time: Thursday, November 10, 2016 11:20 - CONCLUSION: No acute disease. Archie Denise MD Neck CTA 11/10/16 0000 Signed Impressions: Service Date/Time: Thursday, November 10, 2016 13:55 - CONCLUSION: 1. Negative examination of the carotid arteries Jorge Kearney MD Head Magnetic Resonance Angiography 11/10/16 0000 Signed Impressions: Service Date/Time: Thursday, November 10, 2016 15:06 - CONCLUSION: 1. Unremarkable MR angiography of the brain. Jorge Kearney MD Head CTA 11/10/16 0000 Signed Impressions: Service Date/Time: Thursday, November 10, 2016 13:55 - CONCLUSION: No stenosis, thrombus or aneurysm. Normal variants as described above. Archie Denise MD Head CT 11/10/16 0000 Signed Impressions: Service Date/Time: Thursday, November 10, 2016 13:49 - CONCLUSION: 1. Acute left temporoparietal infarction.In a patient of this age emboli should be considered both bland and septic. Echocardiography should be considered Jorge Kearney MD Brain MRI 11/10/16 0000 Signed Impressions: Service Date/Time: Thursday, November 10, 2016 15:06 - CONCLUSION: 1. Acute nonhemorrhagic infarction involving the left temporal parietal lobe. 2. Abnormal signal involving both temporal lobes and right parietal lobe. These areas are not consistent with infarction. The findings would suggest global hypoxia. Infectious encephalitis could have a similar appearance but is felt less likely. Charlie Salas Jr., MD Objective Remarks GENERAL: NAD, lying in bed, repeatedly looks over his right shoulder but will turn to the left with his gaze if prompted NEURO: Limited due to cognitive status. Patient is alert. Oriented to person. Does not follow most commands. Speech is clearer and more fluent today. There are some cranial nerve deficits, difficult to assess as patient does not follow all commands. Left eyebrow raise decreased. Visual block are unable to be tested. Does not cooperate to assess strength or sensory. Gait not tested. SKIN: Warm and dry. No rashes or erythema. HEAD: Normocephalic. Atraumatic. EYES: PERRL. EOMI. No scleral icterus. No injection or drainage. ENT: Bilateral hearing aids in place. No nasal drainage. Moist mucous membranes. No oral ulcers or lesions. NECK: Supple, trachea midline. No JVD or lymphadenopathy. CARDIOVASCULAR: Regular rate and rhythm without murmurs, rubs, gallops, or plops. Peripheral pulses 2+. Capillary refill < 2 seconds. RESPIRATORY: Breath sounds clear to auscultation and equal bilaterally, without wheezes, rales, or rhonchi. No accessory muscle use. GASTROINTESTINAL: Abdomen soft, nontender, nondistended, normal BS. No organomegaly or masses. No rebound tenderness. No guarding. MUSCULOSKELETAL: No edema, cyanosis, or clubbing. BACK: Nontender without obvious deformity. (Yasir Govea MD R2) A/P Assessment and Plan 21 year old male with recent diagnosis of T2DM in 08/2016 but otherwise healthy sent to the ED by his neurologist for further evaluation following an MRI brain w/ and w/o from 11/06 with findings showing multifocal areas of acute cortical infarction involving the left posterior parietal, left medial occipital, bilateral temporal lobes with no acute hemorrhage noted. Etiology is unclear at this time, includes infectious causes, structural heart disease, PFO, atrial myxoma, endocarditis if any unreported IV drug use, hypercoagulability disorder , vs embolic phenomenon due to another cause. Discharge Planning Pending further workup and specialist recommendations (Yasir Govea MD R2) Attending Attestation Patient seen and examined. Case reviewed and discussed with the resident team. Agree with plan of care as discussed with me and documented in the resident note. (Carissa Trejo MD) Problem List: (1) Multifocal neurological deficit Status: Acute Plan: Neurology consult Hematology consult Cardiology consult Patient possibly has MELAS Treatment: Acyclovir 500 mg IV every 8 hours Imaging: -Brain MRI shows 1. Acute nonhemorrhagic infarction involving the left temporal parietal lobe. 2. Abnormal signal involving both temporal lobes and right parietal lobe. These areas are not consistent with an infarction. The findings would suggest global hypoxia. -Head CTA, head MRA, neck CTA, abdominal ultrasound, chest x-ray all reviewed and within normal limits. -Echocardiogram: Bubble study negative for ASD/PFO -EEG: Abnormal EEG because of left more than right hemisphere intermittent slowing with some associated sharp discharges with phase reversal. Findings suggest left more than right hemispheres structural abnormality and associated epileptiform discharge. Probably present out of the left frontal central head region. Labs: Toxicology pending Hepatitis B, hepatitis C, RPR negative HIV pending West Nile virus pending Lyme serology pending CSF: Glucose 98, protein 64.1; CSF: No growth in 24 hours CSF fluid analysis pending Cytology pending (2) Acute encephalopathy Status: Acute Plan: see assessment and plan as above. (3) Hypercoagulable state Status: Acute Plan: Hematology consult Heparin drip started Hypercoagulable workup pending (4) T2DM (type 2 diabetes mellitus) Status: Chronic Plan: Accuchecks ACHS Low-dose ISS (5) FEN/PPX Status: Acute Plan: Fluids: Tolerating by mouth Electrolytes: Monitor and replace when necessary Nutrition: Diabetic diet Prophylaxis: Heparin drip as above per hematology (Yasir Govea MD R2) Problem Qualifiers (1) T2DM (type 2 diabetes mellitus): Qualified Code: E11.9 - Type 2 diabetes mellitus without complication, without long-term current use of insulin Yasri Govea MD R2 November 12, 2016 09:55 Carissa Trejo MD November 16, 2016 09:47
[2016-11-12 11:23] LABS: HSV 1,PCR Negative (Negative)
[2016-11-12] MEDS ORDERED: HEPARIN-D5W INJ 250 ML IV SCH (13:00)
[2016-11-12] MEDS: HEPARIN SODIUM - SQ 10,000 UNITS/ML VIAL SQ SCH (21:45)
--- NOTE | 2016-11-12 23:26 | PD.ONC.PN ---
Subjective Subjective Remarks NAD--comfortable attempting to have conversation--difficulty with meaningful conversation on Heparin GTT Objective Data Date Time Temp Pulse Resp B/P Pulse Ox O2 Delivery O2 Flow Rate FiO2 11/12/16 20:20 99.5 121 18 128/84 96 11/12/16 16:00 98.5 108 18 137/81 96 11/12/16 11:56 98.6 117 18 124/94 97 11/12/16 08:00 68 11/12/16 08:00 98.2 85 18 112/70 97 11/12/16 04:00 97.8 93 18 115/68 97 11/12/16 11/12/16 11/12/16 07:00 15:00 23:00 Intake Total 220 ml 720 ml Balance 220 ml 720 ml Result Diagram: 11/12/1633 11/12/16 0833 Laboratory Results Laboratory Tests Test 11/12/16 08:33 White Blood Count 8.8 TH/MM3 Red Blood Count 4.89 MIL/MM3 Hemoglobin 14.8 GM/DL Hematocrit 43.5 % Mean Corpuscular Volume 88.9 FL Mean Corpuscular Hemoglobin 30.3 PG Mean Corpuscular Hemoglobin 34.1 % Concent Red Cell Distribution Width 12.1 % Platelet Count 276 TH/MM3 Mean Platelet Volume 9.2 FL Neutrophils (%) (Auto) 68.8 % Lymphocytes (%) (Auto) 19.7 % Monocytes (%) (Auto) 9.2 % Eosinophils (%) (Auto) 1.7 % Basophils (%) (Auto) 0.6 % Neutrophils # (Auto) 6.1 TH/MM3 Lymphocytes # (Auto) 1.7 TH/MM3 Monocytes # (Auto) 0.8 TH/MM3 Eosinophils # (Auto) 0.1 TH/MM3 Basophils # (Auto) 0.1 TH/MM3 CBC Comment DIFF FINAL Differential Comment Sodium Level 140 MEQ/L Potassium Level 4.2 MEQ/L Chloride Level 99 MEQ/L Carbon Dioxide Level 30.0 MEQ/L Anion Gap 11 MEQ/L Blood Urea Nitrogen 27 MG/DL Creatinine 0.96 MG/DL Estimat Glomerular Filtration 98 ML/MIN Rate Random Glucose 169 MG/DL Calcium Level 9.6 MG/DL Total Bilirubin 0.6 MG/DL Aspartate Amino Transf 28 U/L (AST/SGOT) Alanine Aminotransferase 59 U/L (ALT/SGPT) Alkaline Phosphatase 67 U/L Total Protein 7.4 GM/DL Albumin 4.0 GM/DL Phenytoin (Dilantin) Level 25.1 MCG/ML Culture Results Microbiology Date/Time Procedure Status Source Growth 11/10/16 19:34 Aerobic Blood Culture - Preliminary Resulted Blood Peripheral NO GROWTH IN 2 DAYS 11/10/16 19:34 Anaerobic Blood Culture - Preliminary Resulted Blood Peripheral NO GROWTH IN 2 DAYS 11/10/16 19:48 Aerobic Blood Culture - Preliminary Resulted Blood Peripheral NO GROWTH IN 2 DAYS 11/10/16 19:48 Anaerobic Blood Culture - Preliminary Resulted Blood Peripheral NO GROWTH IN 2 DAYS 11/11/16 11:10 Gram Stain - Final Resulted Cerebral Spinal Fluid Lumbar Puncture 11/11/16 11:10 CSF Culture - Preliminary Resulted Cerebral Spinal Fluid Lumbar Puncture NO GROWTH IN 24 HOURS. Administered Medications Medications (Trade) Dose Ordered Sig/Liliya Route PRN Reason Start Time Stop Time Status Last Admin Dose Admin Sodium Chloride (NS Flush) 2 ml BID IV FLUSH 11/10/16 13:30 11/12/16 21:45 Heparin Sodium (Porcine) (Heparin Inj) 5,000 units BID SQ 11/12/16 21:00 11/12/16 21:45 Objective Remarks GENERAL: nad SKIN: Warm and dry. CARDIOVASCULAR: Regular rate and rhythm without murmurs. RESPIRATORY: Breath sounds equal bilaterally. No accessory muscle use. GASTROINTESTINAL: Abdomen soft, non-tender, nondistended. EXTREMITIES: No cyanosis, or edema. Assessment/Plan Problem List: (1) CVA (cerebral vascular accident) Status: Acute (2) Seizure disorder, complex partial Status: Acute (3) Acute embolic stroke within last 8 weeks Status: Acute (4) Acute encephalopathy Status: Acute (5) Multifocal neurological deficit Status: Acute Assessment 21-year-old male with no significant past medical history who presents to the emergency department with acute encephalopathy/confusion/decline in cognitive functioning and acute brain infarction. Hematology has been consulted to make further recommendations in this patient who has developed a CVA at an early age. 1. Acute stroke/encephalopathy: - continue Heparin GTT - infectious /neuro w/u on going - Hypercoagulable w/u pending - will follow. Problem Qualifiers (1) CVA (cerebral vascular accident): Qualified Code: I63.9 - Cerebrovascular accident (CVA), unspecified mechanism (2) Seizure disorder, complex partial: Kb Burnham MD November 12, 2016 23:26
[2016-11-12 23:55] LABS: ENTEROVIRUS PCR RESULT Negative (Negative); ENTEROVIRUS PCR SPEC SOURCE CSF (())
[2016-11-13] MEDS ORDERED: FOSPHENYTOIN SODIUM 100 MG PE/2 ML VIAL IV SCH (06:00)
[2016-11-13] MEDS: INSULIN ASPART SUPPLEMENTAL SCALE SQ SCH ×4 (06:15→22:13)
[2016-11-13 08:00] VITALS: BP 124/83; PULSE 95; RESP 20; TEMP 97.1; O2SAT 99
[2016-11-13 08:05] VITALS: PULSE 79
--- NOTE | 2016-11-13 08:44 | HHI.PR ---
Review/Management Diagnosis/Plan: (1) Acute encephalopathy Plan: bihemispheric lesions +dwi on left temporal young age etiology: infarct/infectious/inflammatory-cerebritis/mitochondrial d/o (melas?) vessels nml csf- no sign of infection; elevation in protein, lactic acid; however multiple studies pending elevated lactic acid in csf and blood hsv,hiv,rpr negative nml esr recs check pyruvate levels check sandstone inspector repairer for lactate peak f/u nh3 levels f/u rest of studies if w/u negative consider tx to tertiary care center in vs outpatient iv cerebryx-held; restart in am; level pending this am iv acyclovir-d/c hypercoag state-pending eeg-+sz focus bilateral ok for [facility] follow exam d/w parents; discussed/answered parents questions at length will need alot of rehab; possibly [facility] (2) Acute embolic stroke within last 8 weeks (3) Seizure disorder, complex partial Plan: 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 eeg iv cerebryx Subjective Subjective Comments No acute events reported slept well No headache No chest pain No dyspnea Active Medications Current Medications Medications (Trade) Dose Ordered Sig/Liliya Route Start Time Stop Time Status Last Admin (NS Flush) 2 ml UNSCH PRN IV FLUSH 11/10/16 13:30 (NS Flush) 2 ml BID IV FLUSH 11/10/16 13:30 11/12/16 21:45 (Narcan Inj) 0.4 mg UNSCH PRN IV 11/10/16 13:30 (Aspirin) 325 mg DAILY PO 11/11/16 12:00 (D50w (Vial) Inj) 25 ml UNSCH PRN IV PUSH 11/10/16 19:00 (Glucagon Inj) 1 mg UNSCH PRN OTHER 11/10/16 19:00 (Ativan Inj) 1 mg Q6HR PRN IVS 11/11/16 08:15 (Cerebyx Inj) 130 mgpe Q12H IV 11/14/16 06:00 (Heparin Inj) 5,000 units BID SQ 11/12/16 21:00 11/12/16 21:45 Allergies Allergies Coded Allergies No Known Allergies (Unverified11/10/16) Review of Systems All other ROS: ROS reviewed as documented in chart Exam I&O / VS 5/11/12/16 11/13/16 15:00 23:00 07:00 Intake Total 720 ml Output Total 0 ml Balance 720 ml 0 ml Intake Oral 720 ml Output Urine Total 0 ml # Voids 4 2 Vital Signs Date Time Temp Pulse Resp B/P Pulse Ox O2 Delivery O2 Flow Rate FiO2 11/12/16 23:54 99.9 110 16 122/78 97 11/12/16 23:00 113 11/12/16 20:20 99.5 121 18 128/84 96 11/12/16 16:00 98.5 108 18 137/81 96 11/12/16 11:56 98.6 117 18 124/94 97 Exam Comments alert, sitting up, able to tell me his name, follows some simple request, + ideomotor apraxia, dysnomia, eomi, tracking, +blink to threat, localizes with all 4 ext, msr 1-2+, no clonus, planterflexor Objective Micro and Labs Date/Time Procedure Status Source Growth 11/11/16 11:10 Gram Stain - Final Resulted Cerebral Spinal Fluid Lumbar Puncture 11/11/16 11:10 CSF Culture - Preliminary Resulted Cerebral Spinal Fluid Lumbar Puncture NO GROWTH IN 24 HOURS. 11/10/16 19:48 Aerobic Blood Culture - Preliminary Resulted Blood Peripheral NO GROWTH IN 2 DAYS 11/10/16 19:48 Anaerobic Blood Culture - Preliminary Resulted Blood Peripheral NO GROWTH IN 2 DAYS Problem Qualifiers (1) Seizure disorder, complex partial: Cuong Alvarez MD November 13, 2016 08:44
[2016-11-13] MEDS: ASPIRIN 325 MG TAB PO SCH (08:52)
[2016-11-13] MEDS: HEPARIN SODIUM - SQ 10,000 UNITS/ML VIAL SQ SCH ×2 (08:53→22:03)
[2016-11-13] MEDS: SODIUM CHLORIDE 0.9% FLUSH 10 ML FLUSH IV FLUSH SCH ×2 (08:54→22:03)
--- NOTE | 2016-11-13 09:01 | HHI.FPPN ---
Subjective Remarks No acute events overnight. Temps up to 99.9F overnight. BP has been WNLs, pt has been tachycardic up to 120s bpm. Patient was seen this AM with parents and sister at bedside. TJ is alert, oriented to person and date and able to recall events from yesterday. (Emil Alvarez MD R1) Objective Vitals Vital Signs Date Time Temp Pulse Resp B/P Pulse Ox O2 Delivery O2 Flow Rate FiO2 11/12/16 23:54 99.9 110 16 122/78 97 11/12/16 23:00 113 11/12/16 20:20 99.5 121 18 128/84 96 11/12/16 16:00 98.5 108 18 137/81 96 11/12/16 11:56 98.6 117 18 124/94 97 I/O 11/12/16 11/12/16 11/12/16 11/13/16 11/13/16 11/13/16 07:00 15:00 23:00 07:00 15:00 23:00 Intake Total 220 ml 720 ml Output Total 0 ml Balance 220 ml 720 ml 0 ml Intake Oral 120 ml 720 ml IV Total 100 ml Output Urine Total 0 ml # Voids 2 4 2 # Bowel Movements 0 (Emil Alvarez MD R1) Result Diagram: 11/12/16 0833 11/12/16 0833 Objective Remarks GENERAL: NAD, lying in bed, repeatedly looks over his right shoulder but will turn to the left with his gaze if prompted NEURO: Limited due to cognitive status. Patient is alert. Oriented to person and date. Does not follow most commands. Speech continues to be more clear and more fluent. There are some cranial nerve deficits, difficult to assess as patient does not follow all commands. Left eyebrow raise decreased. Visual block are unable to be tested. Does not cooperate to assess strength or sensory. Gait not tested. SKIN: Warm and dry. No rashes or erythema. HEAD: Normocephalic. Atraumatic. EYES: EOMI. No scleral icterus. No injection or drainage. ENT: Bilateral hearing aids in place. No nasal drainage. Moist mucous membranes. No oral ulcers or lesions. NECK: Supple, trachea midline. No JVD or lymphadenopathy. CARDIOVASCULAR: Regular rate and rhythm without murmurs, rubs, gallops, or plops. Peripheral pulses 2+. RESPIRATORY: Breath sounds clear to auscultation and equal bilaterally, without wheezes, rales, or rhonchi. No accessory muscle use. GASTROINTESTINAL: Abdomen soft, nontender, nondistended, normal BS. No organomegaly or masses. No guarding. MUSCULOSKELETAL: No edema, cyanosis, or clubbing. BACK: Nontender without obvious deformity. (Emil Alvarez MD R1) A/P Assessment and Plan 21 year old male with recent diagnosis of T2DM in 08/2016 but otherwise healthy sent to the ED by his neurologist for further evaluation following an MRI brain w/ and w/o from 11/06 with findings showing multifocal areas of acute cortical infarction involving the left posterior parietal, left medial occipital, bilateral temporal lobes with no acute hemorrhage noted. Etiology is unclear at this time, includes mitochondrial diseases such as MELAS, infectious causes, structural heart disease, PFO has been ruled out with a negative bubble study performed by cardiology, atrial myxoma, endocarditis if any unreported IV drug use however clinical picture does not fit this, hypercoagulability disorder the workup is pending, vs embolic phenomenon due to another cause. Discharge Planning Pending further workup and specialist recommendations (Emil Alvarez MD R1) Attending Attestation Patient seen and examined. Case reviewed and discussed with the resident team. Agree with plan of care as discussed with me and documented in the resident note. (Carissa Trejo MD) Problem List: (1) Multifocal neurological deficit Status: Acute Plan: Neurology consult Hematology consult Cardiology consult Patient possibly has MELAS Treatment: Acyclovir 500 mg IV every 8 hours, now discontinued per neurology Aspirin 325 mg po daily Heparin 5000 units subq BID Fosphenytoin 130 mgpe IV q12h per neurology Imaging: -Brain MRI shows 1. Acute nonhemorrhagic infarction involving the left temporal parietal lobe. 2. Abnormal signal involving both temporal lobes and right parietal lobe. These areas are not consistent with an infarction. The findings would suggest global hypoxia. -Head CTA, head MRA, neck CTA, abdominal ultrasound, chest x-ray all reviewed and within normal limits. -Echocardiogram: Bubble study negative for ASD/PFO -EEG: Abnormal EEG because of left more than right hemisphere intermittent slowing with some associated sharp discharges with phase reversal. Findings suggest left more than right hemispheres structural abnormality and associated epileptiform discharge. Probably present out of the left frontal central head region. Labs: Toxicology pending Hepatitis B, hepatitis C, RPR negative HIV negative West Nile virus pending Lyme serology pending; DNA PCR negative CSF: Glucose 98, protein 64.1; CSF lactic acid elevated at 6.0 CSF: No growth after 48 hours Blood cultures no growth after 3 days CSF fluid analysis pending Extended UDS negative to date Cytology pending (2) Acute encephalopathy Status: Acute Plan: see assessment and plan as above. (3) Hypercoagulable state Status: Acute Plan: Hematology consult Heparin as above Continue aspirin 325 mg po daily Hypercoagulable workup pending (4) T2DM (type 2 diabetes mellitus) Status: Chronic Plan: Accuchecks ACHS Low-dose ISS Levemir 5 units subq BID start today PM (5) FEN/PPX Status: Acute Plan: Fluids: Tolerating by mouth Electrolytes: Monitor and replace when necessary Nutrition: Diabetic diet Prophylaxis: Heparin as above per hematology (Emil Alvarez MD R1) Problem Qualifiers (1) T2DM (type 2 diabetes mellitus): Qualified Code: E11.9 - Type 2 diabetes mellitus without complication, without long-term current use of insulin Emil Alvarez MD R1 November 13, 2016 09:01 Carissa Trejo MD November 16, 2016 09:48
[2016-11-13 09:20] LABS: BASOPHIL # 0.1 TH/MM3 (0-0.2); BASOPHIL % 0.8 % (0.0-2.0); EOSINOPHIL # 0.3 TH/MM3 (0-0.4); EOSINOPHIL % 3.5 % (0.0-4.0); HEMO FLAGS DIFF FINAL; LYMPH % 24.3 % (9.0-44.0); LYMPHOCYTE # 1.9 TH/MM3 (1.0-4.8); MEAN CELL VOLUME 88.4 FL (80.0-100.0); MEAN CORPUSCULAR HEMOGLOBIN 30.8 PG (27.0-34.0); MEAN CORPUSCULAR HGB CONC 34.8 % (32.0-36.0); MONO % 8.4 % (0.0-8.0); PLATELET COUNT 278 TH/MM3 (150-450); RED BLOOD COUNT 4.75 MIL/MM3 (4.50-5.90); RED CELL DISTRIBUTION WIDTH 12.2 % (11.6-17.2); WHITE BLOOD COUNT 7.9 TH/MM3 (4.0-11.0)
[2016-11-13 09:59] LABS: ALKALINE PHOSPHATASE 71 U/L (45-117); ALT (GPT) 56 U/L (12-78); ANION GAP 10 MEQ/L (5-15); AST (GOT) 27 U/L (15-37); BICARBONATE 31.5 MEQ/L (21.0-32.0); BLOOD UREA NITROGEN 29 MG/DL (7-18); CHLORIDE 98 MEQ/L (98-107); GLOMERULAR FILTRATION RATE 96 ML/MIN (>89); POTASSIUM 3.8 MEQ/L (3.5-5.1); SODIUM (NA) 139 MEQ/L (136-145); TOTAL BILIRUBIN ADULT 0.3 MG/DL (0.2-1.0)
[2016-11-13] MEDS ORDERED: LORazepam 2 MG/ML VIAL IV PUSH PRN (12:30)
[2016-11-13 12:37] VITALS: BP 126/83; PULSE 98; RESP 20; TEMP 98.1; O2SAT 98
[2016-11-13 15:53] LABS: LYME DISEASE 18KD IGG BAND NON-REACTIVE (()); LYME DISEASE 23 IGG BAND NON-REACTIVE (()); LYME DISEASE 23KD IGM BAND NON-REACTIVE (()); LYME DISEASE 28KD IGG BAND NON-REACTIVE (()); LYME DISEASE 30KD IGG BAND NON-REACTIVE (()); LYME DISEASE 39 KD IGG BAND NON-REACTIVE (()); LYME DISEASE 39KD IGM BAND NON-REACTIVE (()); LYME DISEASE 41KD IGG BAND NON-REACTIVE (()); LYME DISEASE 41KD IGM BAND NON-REACTIVE (()); LYME DISEASE 45KD IGG BAND NON-REACTIVE (()); LYME DISEASE 58KD IGG BAND NON-REACTIVE (()); LYME DISEASE 66KD IGG BAND NON-REACTIVE (()); LYME DISEASE 93KD IGG BAND NON-REACTIVE (()); LYME DISEASE IGM WB NEGATIVE (())
[2016-11-13 16:44] VITALS: BP 130/91; PULSE 103; RESP 20; TEMP 97.2; O2SAT 98
--- NOTE | 2016-11-13 16:45 | RADRPT ---
EXAM DATE/TIME: 11/13/2016 14:33 [facility] COMPARISON: No previous studies available for comparison. INDICATIONS : Encephalitis. MEDICAL HISTORY : Diabetes mellitus type 2. SURGICAL HISTORY : Leg. ENCOUNTER: Subsequent ACUITY: 4-6 days PAIN SCORE: 0/10 LOCATION: distal TECHNIQUE: Single and multiple voxel spectroscopy was performed with comparisons control areas. FINDINGS: There is blunting of the HODA peak with no elevation of the choline as well as findings of lactate and necrosis. There are no findings of underlying neoplasm. The findings are most characteristic of infa rction specifically the left parietal region. CONCLUSION: 1. Findings of infarction in the left parietal lobe. Jorge Kearney MD on November 13, 2016 at 16:08 Board Certified Radiologist. This report was verified electronically.
[2016-11-13 17:54] LABS: B. BURGDORFERI DNA PCR CSF NOT DETECTED (())
[2016-11-13 19:51] LABS: VDRL CSF NON-REACTIVE (())
[2016-11-13 20:00] VITALS: BP 122/76; PULSE 113; RESP 24; TEMP 98.4; O2SAT 93
[2016-11-13] MEDS: INSULIN DETEMIR 100 UNITS/ML VIAL SQ SCH (22:12)
--- NOTE | 2016-11-13 22:47 | PD.ONC.PN ---
Subjective Subjective Remarks low grade temps still with speech difficulty on heparin gtt. Objective Data Date Time Temp Pulse Resp B/P Pulse Ox O2 Delivery O2 Flow Rate FiO2 11/13/16 16:44 97.2 103 20 130/91 98 11/13/16 12:37 98.1 98 20 126/83 98 11/13/16 08:05 79 11/13/16 08:00 97.1 95 20 124/83 99 11/12/16 23:54 99.9 110 16 122/78 97 11/12/16 23:00 113 11/13/16 11/13/16 11/13/16 07:00 15:00 23:00 Intake Total 840 ml Output Total 0 ml Balance 0 ml 840 ml Result Diagram: 11/13/1643 11/13/16842 Laboratory Results Laboratory Tests Test 11/13/16 11/13/16 08:43 17:25 White Blood Count 7.9 TH/MM3 Red Blood Count 4.75 MIL/MM3 Hemoglobin 14.6 GM/DL Hematocrit 42.0 % Mean Corpuscular Volume 88.4 FL Mean Corpuscular Hemoglobin 30.8 PG Mean Corpuscular Hemoglobin 34.8 % Concent Red Cell Distribution Width 12.2 % Platelet Count 278 TH/MM3 Mean Platelet Volume 9.6 FL Neutrophils (%) (Auto) 63.0 % Lymphocytes (%) (Auto) 24.3 % Monocytes (%) (Auto) 8.4 % Eosinophils (%) (Auto) 3.5 % Basophils (%) (Auto) 0.8 % Neutrophils # (Auto) 5.0 TH/MM3 Lymphocytes # (Auto) 1.9 TH/MM3 Monocytes # (Auto) 0.7 TH/MM3 Eosinophils # (Auto) 0.3 TH/MM3 Basophils # (Auto) 0.1 TH/MM3 CBC Comment DIFF FINAL Differential Comment Sodium Level 139 MEQ/L Potassium Level 3.8 MEQ/L Chloride Level 98 MEQ/L Carbon Dioxide Level 31.5 MEQ/L Anion Gap 10 MEQ/L Blood Urea Nitrogen 29 MG/DL Creatinine 0.98 MG/DL Estimat Glomerular Filtration 96 ML/MIN Rate Random Glucose 139 MG/DL Calcium Level 9.8 MG/DL Total Bilirubin 0.3 MG/DL Aspartate Amino Transf 27 U/L (AST/SGOT) Alanine Aminotransferase 56 U/L (ALT/SGPT) Alkaline Phosphatase 71 U/L Total Protein 7.2 GM/DL Albumin 3.9 GM/DL Phenytoin (Dilantin) Level 17.0 MCG/ML Ammonia 27 MCMOL/L Culture Results Microbiology Date/Time Procedure Status Source Growth 11/11/16 11:10 Gram Stain - Final Resulted Cerebral Spinal Fluid Lumbar Puncture 11/11/16 11:10 CSF Culture - Preliminary Resulted Cerebral Spinal Fluid Lumbar Puncture NO GROWTH IN 48 HOURS. Imaging Studies Last 24 hours Impressions Spectroscopy MRI 11/13/16 0000 Signed Impressions: Service Date/Time: Sunday, November 13, 2016 14:33 - CONCLUSION: 1. Findings of infarction in the left parietal lobe. Jorge Kearney MD Administered Medications Medications (Trade) Dose Ordered Sig/Liliya Route PRN Reason Start Time Stop Time Status Last Admin Dose Admin Sodium Chloride (NS Flush) 2 ml BID IV FLUSH 11/10/16 13:30 11/13/16 22:03 Aspirin (Aspirin) 325 mg DAILY PO 11/11/16 12:00 11/13/16 08:52 Heparin Sodium (Porcine) (Heparin Inj) 5,000 units BID SQ 11/12/16 21:00 11/13/16 22:03 Insulin Detemir (Levemir Inj) 5 units Q12HR SQ 11/13/16 21:00 11/13/16 22:12 Objective Remarks GENERAL: nad SKIN: Warm and dry LYMPHATIC: No adenopathy. CARDIOVASCULAR: Regular rate and rhythm without murmurs. RESPIRATORY: Breath sounds equal bilaterally. No accessory muscle use. GASTROINTESTINAL: Abdomen soft, non-tender, nondistended. EXTREMITIES: No cyanosis, or edema. Assessment/Plan Problem List: (1) CVA (cerebral vascular accident) Status: Acute (2) Seizure disorder, complex partial Status: Acute (3) Acute embolic stroke within last 8 weeks Status: Acute (4) Acute encephalopathy Status: Acute (5) Multifocal neurological deficit Status: Acute Assessment 21-year-old male with no significant past medical history who presents to the emergency department with acute encephalopathy/confusion/decline in cognitive functioning and acute brain infarction. Hematology has been consulted to make further recommendations in this patient who has developed a CVA at an early age. 1. Acute stroke/encephalopathy: - continue Heparin GTT for now, can transition to Coumadin if no procedures planned - infectious /neuro w/u on going - Hypercoagulable w/u pending. Problem Qualifiers (1) CVA (cerebral vascular accident): Qualified Code: I63.9 - Cerebrovascular accident (CVA), unspecified mechanism (2) Seizure disorder, complex partial: Kb Burnham MD November 13, 2016 22:47
[2016-11-14] VITALS: BP 105/63; PULSE 73; RESP 24; TEMP 97.4; O2SAT 98
[2016-11-14 04:00] VITALS: BP 102/70; PULSE 78; RESP 18; TEMP 98.7; O2SAT 94
[2016-11-14 05:38] LABS: HEMATOCRIT 37.3 % (39.0-51.0); MEAN CELL VOLUME 88.1 FL (80.0-100.0); MEAN CORPUSCULAR HEMOGLOBIN 31.3 PG (27.0-34.0); MEAN CORPUSCULAR HGB CONC 35.6 % (32.0-36.0); PLATELET COUNT 250 TH/MM3 (150-450); RED BLOOD COUNT 4.24 MIL/MM3 (4.50-5.90); REVIEW FLAG FINAL; WHITE BLOOD COUNT 8.6 TH/MM3 (4.0-11.0)
[2016-11-14] MEDS: FOSPHENYTOIN SODIUM 100 MG PE/2 ML VIAL IV SCH ×2 (06:11→17:40)
[2016-11-14] MEDS: INSULIN ASPART SUPPLEMENTAL SCALE SQ SCH ×4 (06:13→20:11)
--- NOTE | 2016-11-14 07:18 | HHI.FPPN ---
Subjective Remarks No acute events overnight. Patient was examined this AM with parents and sister at bedside. They do not report any new symptoms or concerns with TJ. He has been walking around the halls without any issues. He continues to have some amount of word-finding difficulty. This AM, he seems to be understanding and answering questions more appropriately than yesterday. No issues eating, voiding or stooling. (Emil Alvarez MD R1) Objective Vitals Vital Signs Date Time Temp Pulse Resp B/P Pulse Ox O2 Delivery O2 Flow Rate FiO2 11/14/16 00:00 97.4 73 24 105/63 98 11/13/16 20:00 98.4 113 24 122/76 93 11/13/16 16:44 97.2 103 20 130/91 98 11/13/16 12:37 98.1 98 20 126/83 98 11/13/16 08:05 79 11/13/16 08:00 97.1 95 20 124/83 99 I/O 11/13/16 11/13/16 11/13/16 11/14/16 11/14/16 11/14/16 07:00 15:00 23:00 07:00 15:00 23:00 Intake Total 840 ml Output Total 0 ml Balance 0 ml 840 ml Intake Oral 840 ml Output Urine Total 0 ml # Voids 2 1 2 (Emil Alvarez MD R1) Result Diagram: 11/14/16 0446 11/13/16 0843 Objective Remarks GENERAL: NAD, lying in bed NEURO: Limited due to cognitive status. Patient is alert. Oriented to person and date. Does not follow most commands. Speech continues to be more clear and more fluent. There are some cranial nerve deficits, difficult to assess as patient does not follow all commands. Left eyebrow raise decreased. Visual block are unable to be tested. Does not cooperate to assess strength or sensory. Gait not tested. SKIN: Warm and dry. No rashes or erythema. HEAD: Normocephalic. Atraumatic. EYES: EOMI. No scleral icterus. No injection or drainage. ENT: Bilateral hearing aids in place. No nasal drainage. Moist mucous membranes. No oral ulcers or lesions. NECK: Supple, trachea midline. No JVD or lymphadenopathy. CARDIOVASCULAR: Regular rate and rhythm without murmurs, rubs, gallops, or plops. Peripheral pulses 2+. RESPIRATORY: Breath sounds clear to auscultation and equal bilaterally, without wheezes, rales, or rhonchi. No accessory muscle use. GASTROINTESTINAL: Abdomen soft, nontender, nondistended, normal BS. No organomegaly or masses. No guarding. MUSCULOSKELETAL: No edema, cyanosis, or clubbing. BACK: Nontender without obvious deformity. (Emil Alvarez MD R1) A/P Assessment and Plan 21 year old male with recent diagnosis of T2DM in 08/2016 but otherwise healthy sent to the ED by his neurologist for further evaluation following an MRI brain w/ and w/o from 11/06 with findings showing multifocal areas of acute cortical infarction involving the left posterior parietal, left medial occipital, bilateral temporal lobes with no acute hemorrhage noted. Etiology is unclear at this time, includes mitochondrial diseases such as MELAS, infectious causes, structural heart disease, PFO has been ruled out with a negative bubble study performed by cardiology, atrial myxoma, endocarditis if any unreported IV drug use however clinical picture does not fit this, hypercoagulability disorder the workup is pending, vs embolic phenomenon due to another cause. Discharge Planning Pending further workup and specialist recommendations (Emil Alvarez MD R1) Attending Attestation Patient seen and examined, discussed with resident team. I agree with assessment and management as documented and discussed with me. Pt seen with parents and sister by his bedside. He denies complaints - no headaches, decreased appetite. Parents report that his encephalopathy has improved slightly each day he has been in the hospital. Discussed that some work up is pending, but that this may represent a mitochondrial disorder. Appreciate neurology, hematology. (Kymberly Mcdaniels MD) Problem List: (1) Multifocal neurological deficit Status: Acute Plan: Neurology consult Hematology consult Cardiology consult Patient possibly has MELAS Treatment: Acyclovir 500 mg IV every 8 hours, now discontinued per neurology Aspirin 325 mg po daily Heparin 5000 units subq BID Fosphenytoin 130 mgpe IV q12h per neurology Imaging: -Brain MRI shows 1. Acute nonhemorrhagic infarction involving the left temporal parietal lobe. 2. Abnormal signal involving both temporal lobes and right parietal lobe. These areas are not consistent with an infarction. The findings would suggest global hypoxia. -Head CTA, head MRA, neck CTA, abdominal ultrasound, chest x-ray all reviewed and within normal limits. -Echocardiogram: Bubble study negative for ASD/PFO -EEG: Abnormal EEG because of left more than right hemisphere intermittent slowing with some associated sharp discharges with phase reversal. Findings suggest left more than right hemispheres structural abnormality and associated epileptiform discharge. Probably present out of the left frontal central head region. -MRI spectroscopy showing findings of infarction in the left parietal lobe Labs: Hepatitis panel negative, RPR negative HIV negative West Nile virus pending Lyme serology all non-reactive; DNA PCR negative CSF: Glucose 98, protein 64.1; CSF lactic acid elevated at 6.0 CSF: No growth after 72 hours Blood cultures no growth after 4 days CSF fluid analysis pending Extended UDS negative to date Cytology negative for malignant cells (2) Acute encephalopathy Status: Acute Plan: see assessment and plan as above. (3) Hypercoagulable state Status: Acute Plan: Hematology consult Heparin as above Continue aspirin 325 mg po daily Hypercoagulable workup pending (4) T2DM (type 2 diabetes mellitus) Status: Chronic Plan: Accuchecks ACHS Low-dose ISS Continue Levemir 5 units subq BID (5) FEN/PPX Status: Acute Plan: Fluids: Tolerating by mouth Electrolytes: Monitor and replace when necessary Nutrition: Diabetic diet Prophylaxis: Heparin as above per hematology (Emil Alvarez MD R1) Problem Qualifiers (1) T2DM (type 2 diabetes mellitus): Qualified Code: E11.9 - Type 2 diabetes mellitus without complication, without long-term current use of insulin Emil Alvarez MD R1 November 14, 2016 07:18 Kymberly Mcdaniels MD November 14, 2016 20:09
[2016-11-14 08:07] VITALS: BP 109/66; PULSE 81; RESP 18; TEMP 95.6; O2SAT 98
[2016-11-14] MEDS: INSULIN DETEMIR 100 UNITS/ML VIAL SQ SCH ×2 (09:00→20:11)
[2016-11-14] MEDS: HEPARIN SODIUM - SQ 10,000 UNITS/ML VIAL SQ SCH ×2 (09:21→20:12)
[2016-11-14] MEDS: SODIUM CHLORIDE 0.9% FLUSH 10 ML FLUSH IV FLUSH SCH ×2 (09:22→20:12)
[2016-11-14] MEDS: ASPIRIN 325 MG TAB PO SCH (09:22)
[2016-11-14 11:20] LABS: BATH SALTS (MDPV) UR NEG (NEG); ECSTASY (MDMA) UR NEG (NEG); GABAPENTIN UR NEG (NEG); HEROIN (6-ACETYLMORPHINE) UR NEG (NEG); HYDROMORPHONE U NEG (NEG); K2 SPICE UR NEG (NEG); OBMETHADONE UR NEG (NEG); OXYCODONE (PERCODAN) NEG (NEG); PHENCYCLIDINE URINE NEG (NEG)
[2016-11-14 11:40] LABS: CSF CRYPTOCOCCUS AG CONF ND (NOT DETECTD)
[2016-11-14 11:52] LABS: THROMBIN TIME FOR LA ND sec (13-19)
[2016-11-14 12:08] VITALS: BP 120/76; PULSE 102; RESP 18; TEMP 96.7; O2SAT 98
[2016-11-14 16:21] VITALS: BP 116/71; PULSE 107; RESP 18; TEMP 96.5; O2SAT 96
[2016-11-14 20:00] VITALS: BP 124/75; PULSE 107; RESP 18; TEMP 98; O2SAT 97
[2016-11-15] VITALS (7 sets, daily range): BP systolic 109–127; BP diastolic 62–78; PULSE 83–100; RESP 18–20; TEMP 97.5–99.2; O2SAT 97–100
[2016-11-15] MEDS: FOSPHENYTOIN SODIUM 100 MG PE/2 ML VIAL IV SCH ×2 (05:42→17:31)
[2016-11-15] MEDS: INSULIN ASPART SUPPLEMENTAL SCALE SQ SCH ×4 (05:46→21:58)
[2016-11-15] MEDS: ASPIRIN 325 MG TAB PO SCH (08:16)
[2016-11-15] MEDS: SODIUM CHLORIDE 0.9% FLUSH 10 ML FLUSH IV FLUSH SCH ×2 (08:17→21:59)
[2016-11-15] MEDS: HEPARIN SODIUM - SQ 10,000 UNITS/ML VIAL SQ SCH ×2 (08:17→21:59)
[2016-11-15] MEDS: INSULIN DETEMIR 100 UNITS/ML VIAL SQ SCH ×2 (08:18→21:57)
--- NOTE | 2016-11-15 10:38 | HHI.FPPN ---
Subjective Remarks Patient in shower and shaving this morning. Patient seen and evaluated this afternoon. Parents and sister in room, ask if there are any new results. Mother reports as a child he had difficulty with growth and was tested for cystic fibrosis. Family looked up mitochondrial disorders online and were seeing many of the things in him such as hearing loss. They ask about options for discharge and if going home is a possibility. They state they could bring him to appointments. (Emil Alvarez MD R1) Objective Vitals Vital Signs Date Time Temp Pulse Resp B/P Pulse Ox O2 Delivery O2 Flow Rate FiO2 11/15/16 08:05 97.6 83 18 109/68 99 11/15/16 04:00 97.5 83 18 111/62 98 11/15/16 00:00 98.3 92 18 127/76 97 11/14/16 20:00 98.0 107 18 124/75 97 11/14/16 16:21 96.5 107 18 116/71 96 11/14/16 12:08 96.7 102 18 120/76 98 I/O 11/14/16 11/14/16 11/14/16 11/15/16 11/15/16 11/15/16 07:00 15:00 23:00 07:00 15:00 23:00 Intake Total 480 ml 480 ml Balance 480 ml 480 ml Intake Oral 480 ml 480 ml # Voids 3 2 # Bowel Movements 1 (Emil Alvarez MD R1) Result Diagram: 11/14/16 0446 11/13/16 0843 Imaging Last Impressions Spectroscopy MRI 11/13/16 0000 Signed Impressions: Service Date/Time: Sunday, November 13, 2016 14:33 - CONCLUSION: 1. Findings of infarction in the left parietal lobe. Jorge Kearney MD Lumbar Puncture Fluoroscopy 11/11/16 0000 Signed Impressions: Service Date/Time: Friday, November 11, 2016 11:10 - CONCLUSION: Uncomplicated fluoroscopically guided lumbar puncture. Dion Arauz MD Abdomen Ultrasound 11/11/16 0000 Signed Impressions: Service Date/Time: Friday, November 11, 2016 15:58 - CONCLUSION: 1. Unremarkable ultrasound examination of the abdomen. Jorge Kearney MD Chest X-Ray 11/10/16 1111 Signed Impressions: Service Date/Time: Thursday, November 10, 2016 11:20 - CONCLUSION: No acute disease. Archie Denise MD Neck CTA 11/10/16 Signed Impressions: Service Date/Time: Thursday, November 10, 2016 13:55 - CONCLUSION: 1. Negative examination of the carotid arteries Jorge Kearney MD Head Magnetic Resonance Angiography 11/10/16 Signed Impressions: Service Date/Time: Thursday, November 10, 2016 15:06 - CONCLUSION: 1. Unremarkable MR angiography of the brain. Jorge Kearney MD Head CTA 11/10/16 Signed Impressions: Service Date/Time: Thursday, November 10, 2016 13:55 - CONCLUSION: No stenosis, thrombus or aneurysm. Normal variants as described above. Archie Denise MD Head CT 11/10/16 Signed Impressions: Service Date/Time: Thursday, November 10, 2016 13:49 - CONCLUSION: 1. Acute left temporoparietal infarction.In a patient of this age emboli should be considered both bland and septic. Echocardiography should be considered Jorge Kearney MD Brain MRI 11/10/16 Signed Impressions: Service Date/Time: Thursday, November 10, 2016 15:06 - CONCLUSION: 1. Acute nonhemorrhagic infarction involving the left temporal parietal lobe. 2. Abnormal signal involving both temporal lobes and right parietal lobe. These areas are not consistent with infarction. The findings would suggest global hypoxia. Infectious encephalitis could have a similar appearance but is felt less likely. Charlie Salas Jr., MD Objective Remarks GENERAL: NAD, lying in bed NEURO: Limited due to cognitive status. Patient is alert. Oriented to person and date. Follows commands today more easily than yesterday. Speech continues to be more clear and more fluent. Answers about 50% of questions correctly. Easily repeats words that are told to him. There are some cranial nerve deficits , difficult to assess as patient does not follow all commands. SKIN: Warm and dry. No rashes or erythema. HEAD: Normocephalic. Atraumatic. EYES: EOMI. No scleral icterus. No injection or drainage. ENT: Bilateral hearing aids in place. No nasal drainage. Moist mucous membranes. No oral ulcers or lesions. NECK: Supple, trachea midline. No JVD or lymphadenopathy. CARDIOVASCULAR: Regular rate and rhythm without murmurs, rubs, gallops, or plops. Peripheral pulses 2+. RESPIRATORY: Breath sounds clear to auscultation and equal bilaterally, without wheezes, rales, or rhonchi. No accessory muscle use. GASTROINTESTINAL: Abdomen soft, nontender, nondistended, normal BS. No organomegaly or masses. No guarding. MUSCULOSKELETAL: No edema, cyanosis, or clubbing. BACK: Nontender without obvious deformity. (Emil Alvarez MD R1) A/P Assessment and Plan 21 year old male with recent diagnosis of T2DM in 08/2016 but otherwise healthy sent to the ED by his neurologist for further evaluation following an MRI brain w/ and w/o from 11/06 with findings showing multifocal areas of acute cortical infarction involving the left posterior parietal, left medial occipital, bilateral temporal lobes with no acute hemorrhage noted. Etiology is unclear at this time, includes mitochondrial diseases such as MELAS, infectious causes, structural heart disease, PFO has been ruled out with a negative bubble study performed by cardiology, atrial myxoma, endocarditis if any unreported IV drug use however clinical picture does not fit this, hypercoagulability disorder the workup is pending, vs embolic phenomenon due to another cause. Discharge Planning Pending further workup and specialist recommendations (Emil Alvarez MD R1) Attending Attestation Patient seen, examined, and discussed with resident team. I agree with assessment and management as documented and discussed with me. Pt without complaints. Parents feel that his cognition is slowly improved every day. Await testing (send out tests are pending). Plan to discuss discharge plan with neurology tomorrow. (Kymberly Mcdaniels MD) Problem List: (1) Multifocal neurological deficit Status: Acute Plan: Neurology consult Hematology consult Cardiology consult Patient possibly has MELAS Treatment: Acyclovir 500 mg IV every 8 hours, now discontinued per neurology Aspirin 325 mg po daily Heparin 5000 units subq BID Fosphenytoin 130 mgpe IV q12h per neurology Imaging: -Brain MRI shows 1. Acute nonhemorrhagic infarction involving the left temporal parietal lobe. 2. Abnormal signal involving both temporal lobes and right parietal lobe. These areas are not consistent with an infarction. The findings would suggest global hypoxia. -Head CTA, head MRA, neck CTA, abdominal ultrasound, chest x-ray all reviewed and within normal limits. -Echocardiogram: Bubble study negative for ASD/PFO -EEG: Abnormal EEG because of left more than right hemisphere intermittent slowing with some associated sharp discharges with phase reversal. Findings suggest left more than right hemispheres structural abnormality and associated epileptiform discharge. Probably present out of the left frontal central head region. -MRI spectroscopy showing findings of infarction in the left parietal lobe -Repeat US of pancreas and there was inadequate visualization with previous abdomen ultrasound Labs: Hepatitis panel negative, RPR negative HIV negative West Nile virus <0.90 Lyme serology all non-reactive; DNA PCR negative CSF: Glucose 98, protein 64.1; CSF lactic acid elevated at 6.0 CSF: No growth after 72 hours Blood cultures no growth after 5 days CSF VDRL non-reactive CSF lyme disease not detected CSF cryptococcus antigen not detected CSF enterovirus negative CSF myelin basic protein < 2.0 Extended UDS all negative Cytology negative for malignant cells (2) Acute encephalopathy Status: Acute Plan: see assessment and plan as above. (3) Hypercoagulable state Status: Acute Plan: Hematology consult Heparin as above Continue aspirin 325 mg po daily Hypercoagulable workup pending (4) T2DM (type 2 diabetes mellitus) Status: Chronic Plan: Accuchecks ACHS Low-dose ISS Increased Levemir to 10 units subq BID (5) FEN/PPX Status: Acute Plan: Fluids: Tolerating by mouth Electrolytes: WNLs on 11/13 Nutrition: Diabetic diet Prophylaxis: Heparin as above per hematology (Emil Alvarez MD R1) Problem Qualifiers (1) T2DM (type 2 diabetes mellitus): Qualified Code: E11.9 - Type 2 diabetes mellitus without complication, without long-term current use of insulin Emil Alvarez MD R1 November 15, 2016 10:38 Kymberly Mcdaniels MD November 15, 2016 20:29
--- NOTE | 2016-11-15 18:04 | HHI.PR ---
Review/Management Diagnosis/Plan: (1) Acute encephalopathy Plan: bihemispheric lesions +dwi on left temporal young age etiology: infarct/infectious/inflammatory-cerebritis/mitochondrial d/o (melas?) vessels nml csf- no sign of infection; elevation in protein, lactic acid; however multiple studies pending elevated lactic acid in csf and blood hsv,hiv,rpr negative nml esr f/u nh3 levels f/u rest of studies if w/u negative consider tx to tertiary care center in vs outpatient iv acyclovir-d/c hypercoag state-pending eeg-+sz focus bilateral ok for [facility] will need a lot of rehab; possibly [facility] (2) Acute embolic stroke within last 8 weeks (3) Seizure disorder, 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 Alvarez will continue follow up on Wednesday11/16/2016 Subjective Subjective Comments Patient is seen with parents and sister at bed side They report that the head movements/partial seizures have subsided after starting AED Report less visual hallucinations Dilantin levels is therapeutic 11/14 [11.6], 11/15/[11.9] MRI spect revealed left parietal infract Active Medications Current Medications Medications (Trade) Dose Ordered Sig/Liliya Route Start Time Stop Time Status Last Admin (NS Flush) 2 ml UNSCH PRN IV FLUSH 11/10/16 13:30 (NS Flush) 2 ml BID IV FLUSH 11/10/16 13:30 11/15/16 08:17 (Narcan Inj) 0.4 mg UNSCH PRN IV 11/10/16 13:30 (Aspirin) 325 mg DAILY PO 11/11/16 12:00 11/15/16 08:16 (D50w (Vial) Inj) 25 ml UNSCH PRN IV PUSH 11/10/16 19:00 (Glucagon Inj) 1 mg UNSCH PRN OTHER 11/10/16 19:00 (Ativan Inj) 1 mg Q6HR PRN IVS 11/11/16 08:15 (Cerebyx Inj) 130 mgpe Q12H IV 11/14/16 06:00 11/15/16 17:31 (Heparin Inj) 5,000 units BID SQ 11/12/16 21:00 11/15/16 08:17 (Levemir Inj) 10 units Q12HR SQ 11/15/16 21:00 Allergies Allergies Coded Allergies No Known Allergies (Unverified11/10/16) Review of Systems All other ROS: ROS reviewed as documented in chart Exam I&O / VS 11/14/16 11/14/16 11/15/16 14:59 22:59 06:59 Intake Total 480 ml 480 ml Balance 480 ml 480 ml Intake Oral 480 ml 480 ml # Voids 3 2 # Bowel Movements 1 Vital Signs Date Time Temp Pulse Resp B/P Pulse Ox O2 Delivery O2 Flow Rate FiO2 11/15/16 15:54 98.9 97 18 109/62 100 11/15/16 12:27 99.2 96 18 117/78 99 11/15/16 08:05 97.6 83 18 109/68 99 11/15/16 04:00 97.5 83 18 111/62 98 11/15/16 00:00 98.3 92 18 127/76 97 11/14/16 20:00 98.0 107 18 124/75 97 Objective Radiology Results Last 72 hours Impressions Pancreas Ultrasound 11/15/16 0000 Signed Impressions: Service Date/Time: Tuesday, November 15, 2016 18:08 - CONCLUSION: No acute abnormality demonstrated. Rogers Costello MD Micro and Labs Laboratory Tests Test 11/15/16 06:47 Phenytoin (Dilantin) Level 11.9 Date/Time Procedure Status Source Growth 11/14/16 10:45 Stool Occult Blood (XIOMARA) - Final Complete Stool Stool HEMOCCULT NEGATIVE 11/11/16 11:10 Gram Stain - Final Complete Cerebral Spinal Fluid Lumbar Puncture 11/11/16 11:10 CSF Culture - Final Complete Cerebral Spinal Fluid Lumbar Puncture NO GROWTH IN 72 HOURS 11/10/16 19:48 Aerobic Blood Culture - Final Complete Blood Peripheral NO GROWTH IN 5 DAYS 11/10/16 19:48 Anaerobic Blood Culture - Final Complete Blood Peripheral NO GROWTH IN 5 DAYS Problem Qualifiers (1) Seizure disorder, complex partial: Kusum Becker MD November 15, 2016 18:04 Blood Peripheral NO GROWTH IN 5 DAYS Problem Qualifiers (1) Seizure disorder, complex partial: Kusum Becker MD November 15, 2016 18:04
[2016-11-15] MEDS: DEXT 5%-NACL 0.45% 1000 ML INJ 1,000 ML IV SCH (18:15)
--- NOTE | 2016-11-15 20:15 | RADRPT ---
EXAM DATE/TIME: 11/15/2016 18:08 [facility] COMPARISON: No previous studies available for comparison. INDICATIONS : Possible mass. MEDICAL HISTORY : Abdomen pain. Diabetes. Cerebrovascular accident. SURGICAL HISTORY : Right femur surgery. ENCOUNTER: Subsequent ACUITY: 1 day PAIN SCORE: 0/10 LOCATION: Right upper quadrant MEASUREMENTS: LIVER: 15.0 cm length COMMON DUCT: 5 mm RIGHT KIDNEY: 10.6 x 4.3 x 1.2 cm FINDINGS: LIVER: Normal echotexture without focal lesion or ductal dilatation. COMMON DUCT: No intraluminal mass or stone visualized. GALLBLADDER: Gallbladder only slightly distended. Accounting for this, wall thickness of 3.6 mm within normal limi ts. No pericholecystic fluid. No sludge or stones seen. Negative sonographic Westbrook's sign. PANCREAS: The visualized portions are within normal limits. CONCLUSION: No acute abnormality demonstrated. Rogers Costello MD on November 15, 2016 at 20:12 Board Certified Radiologist. This report was verified electronically.
[2016-11-16 01:02] VITALS: BP 102/64; PULSE 85; RESP 20; TEMP 98.3; O2SAT 98
[2016-11-16] MEDS: DEXT 5%-NACL 0.45% 1000 ML INJ 1,000 ML IV SCH ×2 (05:08→16:01)
[2016-11-16 05:14] VITALS: BP 98/59; PULSE 73; RESP 20; TEMP 96; O2SAT 99
[2016-11-16] MEDS: FOSPHENYTOIN SODIUM 100 MG PE/2 ML VIAL IV SCH (06:00)
[2016-11-16 06:14] VITALS: PULSE 89
[2016-11-16] MEDS: INSULIN ASPART SUPPLEMENTAL SCALE SQ SCH ×3 (06:32→16:00)
--- NOTE | 2016-11-16 06:32 | HHI.PR ---
Review/Management Diagnosis/Plan: (1) Acute encephalopathy Plan: bihemispheric lesions +dwi on left temporal young age etiology: infarct/infectious/inflammatory-cerebritis/mitochondrial d/o (melas?) vessels nml csf- no sign of infection; elevation in protein, lactic acid; however multiple studies pending elevated lactic acid in csf and blood hsv,hiv,rpr negative nml esr eeg-+sz focus bilateral hx of deafness, failure to thrive as a child, dm, clumsiness, strokes, sz's. suspect congenital/genetic syndrome. 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 Subjective Subjective Comments No acute events reported No headache No chest pain No dyspnea Active Medications Current Medications Medications (Trade) Dose Ordered Sig/Liliya Route Start Time Stop Time Status Last Admin (NS Flush) 2 ml UNSCH PRN IV FLUSH 11/10/16 13:30 (NS Flush) 2 ml BID IV FLUSH 11/10/16 13:30 11/15/16 21:59 (Narcan Inj) 0.4 mg UNSCH PRN IV 11/10/16 13:30 (Aspirin) 325 mg DAILY PO 11/11/16 12:00 11/15/16 08:16 (D50w (Vial) Inj) 25 ml UNSCH PRN IV PUSH 11/10/16 19:00 (Glucagon Inj) 1 mg UNSCH PRN OTHER 11/10/16 19:00 (Ativan Inj) 1 mg Q6HR PRN IVS 11/11/16 08:15 (Cerebyx Inj) 130 mgpe Q12H IV 11/14/16 06:00 11/15/16 17:31 (Heparin Inj) 5,000 units BID SQ 11/12/16 21:00 11/15/16 21:59 Insulin Detemir 10 units 10 units Q12HR SQ 11/15/16 21:00 11/15/16 21:57 (D5W-1/2 NS 1000 ml Inj) 1,000 ml @ 92 mls/hr [id number] IV 11/15/16 18:15 Allergies Allergies Coded Allergies No Known Allergies (Unverified11/10/16) Review of Systems All other ROS: ROS reviewed as documented in chart Exam I&O / VS 11/15/16 11/15/16 11/16/16 14:59 22:59 06:59 Intake Total 360 ml Balance 360 ml Intake Oral 360 ml # Voids 2 2 # Bowel Movements 1 Vital Signs Date Time Temp Pulse Resp B/P Pulse Ox O2 Delivery O2 Flow Rate FiO2 11/16/16 06:14 89 11/16/16 05:14 96.0 73 20 98/59 99 11/16/16 01:02 98.3 85 20 102/64 98 11/15/16 22:00 89 11/15/16 21:30 99.0 100 20 124/71 100 11/15/16 15:54 98.9 97 18 109/62 100 11/15/16 12:27 99.2 96 18 117/78 99 11/15/16 08:05 97.6 83 18 109/68 99 Exam Comments alert, able to tell me his name, recognizes parents, better eye contact, follows some simple request, perseverates, + ideomotor apraxia, dysnomia, eomi, + tracking, localizes with all 4 ext, msr 1-2+, no clonus, planterflexor Objective Micro and Labs Laboratory Tests Test 11/15/16 06:47 Phenytoin (Dilantin) Level 11.9 Date/Time Procedure Status Source Growth 11/14/16 10:45 Stool Occult Blood (XIOMARA) - Final Complete Stool Stool HEMOCCULT NEGATIVE 11/11/16 11:10 Gram Stain - Final Complete Cerebral Spinal Fluid Lumbar Puncture 11/11/16 11:10 CSF Culture - Final Complete Cerebral Spinal Fluid Lumbar Puncture NO GROWTH IN 72 HOURS Problem Qualifiers (1) Seizure disorder, complex partial: Cuong Alvarez MD November 16, 2016 06:32
[2016-11-16] MEDS ORDERED: PROPOFOL 200 MG/20 ML AMP IV ONE ×2 (08:26→09:42)
[2016-11-16 08:36] VITALS: BP 127/87; PULSE 88; RESP 18; TEMP 96.9; O2SAT 100
--- NOTE | 2016-11-16 08:56 | HHI.FPPN ---
Subjective Remarks Patient seen with parents at bedside. Went for FRANKY this morning by cardiology. Parents had questions about mitochondrial inherited disorders, specifically which ones in particular are most likely diagnoses and potential prognoses. They state they are agreeable to any testing that still needs to be done and are also ok with being transferred to a tertiary care center if needed. They would like to do whatever is best for TJ. They also agree for genetic testing to be obtained and understand this would need to be sent off to another center such as [facility] in [place] or [facility] in [place]. They state they would like to follow up with Dr. Alvarez. The parents have scheduled an appointment with 's primary care physician Dr. Juarez in [place] for this upcoming Saturday 11/18 in the afternoon. They do not have any new concerns with TJ with regards to symptoms. They state they are both retired and will be able to drive him anywhere necessary including speech therapy daily at an outside location. (Emil Alvarez MD R1) Objective Vitals Vital Signs Date Time Temp Pulse Resp B/P Pulse Ox O2 Delivery O2 Flow Rate FiO2 11/16/16 08:36 96.9 88 18 127/87 100 11/16/16 06:14 89 11/16/16 05:14 96.0 73 20 98/59 99 11/16/16 01:02 98.3 85 20 102/64 98 11/15/16 22:00 89 11/15/16 21:30 99.0 100 20 124/71 100 11/15/16 15:54 98.9 97 18 109/62 100 11/15/16 12:27 99.2 96 18 117/78 99 I/O 11/15/16 11/15/16 11/15/16 11/16/16 11/16/16 11/16/16 07:00 15:00 23:00 07:00 15:00 23:00 Intake Total 480 ml 360 ml Balance 480 ml 360 ml Intake Oral 480 ml 360 ml # Voids 2 2 2 # Bowel Movements 1 (Emil Alvarez MD R1) Result Diagram: 11/14/16 0446 11/13/16 0843 Objective Remarks GENERAL: NAD, lying in bed NEURO: Limited due to cognitive status. Patient is alert. Oriented to person and date. Able to follow some commands. Speech is same as yesterday. Answers about 50% of questions correctly. SKIN: Warm and dry. No rashes or erythema. HEAD: Normocephalic. Atraumatic. EYES: EOMI. No scleral icterus. No injection or drainage. ENT: Bilateral hearing aids in place. No nasal drainage. Moist mucous membranes. No oral ulcers or lesions. NECK: Supple, trachea midline. No JVD or lymphadenopathy. CARDIOVASCULAR: Regular rate and rhythm without murmurs, rubs, gallops, or plops. Peripheral pulses 2+. RESPIRATORY: Breath sounds clear to auscultation and equal bilaterally, without wheezes, rales, or rhonchi. No accessory muscle use. GASTROINTESTINAL: Abdomen soft, nontender, nondistended, normal BS. No organomegaly or masses. No guarding. MUSCULOSKELETAL: No edema, cyanosis, or clubbing. BACK: Nontender without obvious deformity. (Emil Alvarez MD R1) A/P Assessment and Plan 21 year old male with recent diagnosis of T2DM in 08/2016 but otherwise healthy sent to the ED by his neurologist for further evaluation following an MRI brain w/ and w/o from 11/06 with findings showing multifocal areas of acute cortical infarction involving the left posterior parietal, left medial occipital, bilateral temporal lobes with no acute hemorrhage noted. Etiology is unclear at this time however due to the completely negative workup is now conerning for mitochondrial disorders such as MELAS. Other now less likely etiologies are infectious causes, structural heart disease ruled out, PFO has been ruled out with a negative bubble study performed by cardiology on both TTE and FRANKY, atrial myxoma, endocarditis if any unreported IV drug use however clinical picture does not fit this and extended urine drug screen is all negative, hypercoagulability disorder the workup is negative, vs embolic phenomenon due to another cause. Discharge Planning Stable for discharge today Parents state they would like to follow up with Dr. Alvarez, neurology Follow up appointment with primary care physician Dr. Juarez in [place] is scheduled for Saturday 11/18 Script provided for speech therapy daily as an outpatient Patient will be provided with a script as an outpatient to obtain the genetic testing panel to include screening for mitochondrial disorders to be sent out to [facility] (Emil Alvarez MD R1) Attending Attestation Patient seen and examined, discussed with resident team. I agree with assessment and management as documented and discussed with me. TJ is without complaints. He is seen after FRANKY, which was nonrevealing. Discharge home today, with speech follow up and neuro follow up as an outpatient. Greater than 30 minutes spent personally counselling and coordinating care at discharge. (Kymberly Mcdaniels MD) Problem List: (1) Multifocal neurological deficit Status: Acute Plan: Neurology consult Hematology consult Cardiology consult Patient possibly has MELAS Treatment: Patient was on Heparin 5000 units subq BID during inpatient stay, per Dr. Burnham' s recommendations patient does not need to be on anticoagulation as an outpatient, and recommends antiplatelet therapy per recommendations from neurology Fosphenytoin 130 mgpe IV q12h per neurology while inpatient; transitioned to Dilantin 100 mg po q8h Continue Aspirin 325 mg po daily Acyclovir 500 mg IV every 8 hours (11/10-11/12), now discontinued per neurology Imaging: -Brain MRI shows 1. Acute nonhemorrhagic infarction involving the left temporal parietal lobe. 2. Abnormal signal involving both temporal lobes and right parietal lobe. These areas are not consistent with an infarction. The findings would suggest global hypoxia. -Head CTA, head MRA, neck CTA, abdominal ultrasound, chest x-ray all reviewed and within normal limits. -Echocardiogram: Bubble study negative for ASD/PFO -EEG: Abnormal EEG because of left more than right hemisphere intermittent slowing with some associated sharp discharges with phase reversal. Findings suggest left more than right hemispheres structural abnormality and associated epileptiform discharge. Probably present out of the left frontal central head region. -MRI spectroscopy showing findings of infarction in the left parietal lobe -US of pancreas: visualized portions are within normal limits -FRANKY performed 11/16 tentatively negative for endocarditis and again negative bubble study, however still awaiting final report by cardiology Labs: Hepatitis panel negative RPR non-reactive HIV 1&2 negative HSV I and II DNA PCR both negative West Nile virus <0.90 Lyme serology all non-reactive; DNA PCR negative CSF: Glucose 98, protein 64.1; CSF lactic acid elevated at 6.0 CSF: No growth after 72 hours Blood cultures no growth after 5 days CSF VDRL non-reactive CSF lyme disease not detected CSF cryptococcus antigen not detected CSF enterovirus negative CSF myelin basic protein < 2.0 Extended UDS all negative Cytology negative for malignant cells AILYN negative RF negative (2) Acute encephalopathy Status: Acute Plan: see assessment and plan as above. (3) Hypercoagulable state Status: Acute Plan: Hematology consult Heparin as above No anticoagulation needed as an outpatient per Dr. Burnham, hematology/oncology Continue aspirin 325 mg po daily Hypercoagulable workup negative (4) T2DM (type 2 diabetes mellitus) Status: Chronic Plan: Accuchecks ACHS Low-dose ISS Increased Levemir to 10 units subq BID Continue PO meds on discharge (5) FEN/PPX Status: Acute Plan: Fluids: Tolerating by mouth Electrolytes: WNLs on 11/13 Nutrition: Diabetic diet Prophylaxis: Heparin as above per hematology (Emil Alvarez MD R1) Problem Qualifiers (1) T2DM (type 2 diabetes mellitus): Qualified Code: E11.9 - Type 2 diabetes mellitus without complication, without long-term current use of insulin Emil Alvarez MD R1 November 16, 2016 08:56 Kymberly Mcdaniels MD November 17, 2016 06:44
[2016-11-16] MEDS: HEPARIN SODIUM - SQ 10,000 UNITS/ML VIAL SQ SCH (09:00)
[2016-11-16] MEDS ORDERED: PHENYTOIN SODIUM 100 MG CAP PO SCH ×2 (09:00→14:00)
[2016-11-16] MEDS: SODIUM CHLORIDE 0.9% FLUSH 10 ML FLUSH IV FLUSH SCH (09:00)
--- NOTE | 2016-11-16 09:02 | PD.CARD.PN ---
Subjective Subjective Remarks PT without complaints Objective Medications Current Medications Medications (Trade) Dose Ordered Sig/Liliya Route Start Time Stop Time Status Last Admin (NS Flush) 2 ml UNSCH PRN IV FLUSH 11/10/16 13:30 (NS Flush) 2 ml BID IV FLUSH 11/10/16 13:30 11/15/16 21:59 (Narcan Inj) 0.4 mg UNSCH PRN IV 11/10/16 13:30 (Aspirin) 325 mg DAILY PO 11/11/16 12:00 11/15/16 08:16 (D50w (Vial) Inj) 25 ml UNSCH PRN IV PUSH 11/10/16 19:00 (Glucagon Inj) 1 mg UNSCH PRN OTHER 11/10/16 19:00 (Ativan Inj) 1 mg Q6HR PRN IVS 11/11/16 08:15 (Heparin Inj) 5,000 units BID SQ 11/12/16 21:00 11/15/16 21:59 Insulin Detemir 10 units 10 units Q12HR SQ 11/15/16 21:00 11/15/16 21:57 (D5W-1/2 NS 1000 ml Inj) 1,000 ml @ 92 mls/hr [id number] IV 11/15/16 18:15 (Dilantin) 100 mg Q8H PO 11/16/16 14:00 Vital Signs / I&O Vital Signs Date Time Temp Pulse Resp B/P Pulse Ox O2 Delivery O2 Flow Rate FiO2 11/16/16 08:36 96.9 88 18 127/87 100 11/16/16 06:14 89 11/16/16 05:14 96.0 73 20 98/59 99 11/16/16 01:02 98.3 85 20 102/64 98 11/15/16 22:00 89 11/15/16 21:30 99.0 100 20 124/71 100 11/15/16 15:54 98.9 97 18 109/62 100 11/15/16 12:27 99.2 96 18 117/78 99 I/O 11/15/16 11/15/16 11/15/16 11/16/16 11/16/16 11/16/16 07:00 15:00 23:00 07:00 15:00 23:00 Intake Total 480 ml 360 ml Balance 480 ml 360 ml Intake Oral 480 ml 360 ml # Voids 2 2 2 # Bowel Movements 1 Physical Exam GENERAL: Well developed, well nourished. No acute distress. HEENT: Jugular venous pressure is normal. CHEST: Lungs clear to auscultation bilaterally. Unlabored respiratory effort. CARDIAC: Regular rate and rhythm without S3, S4, or murmur. ABDOMEN: Soft, nontender, no hepatosplenomegaly. Bowel sounds present. EXTREMITIES: No clubbing, cyanosis, or edema. Assessment and Plan Assessment and Plan CVA- per neurology, FRANKY requested - negative bubbles on TTE FRANKY - evaluation, risk/bene discussed -pt's family agreeable Rebecca Montalvo MD November 16, 2016 09:01
[2016-11-16 12:34] VITALS: BP 122/74; PULSE 100; RESP 16; TEMP 95.7; O2SAT 100
[2016-11-16] MEDS: ASPIRIN 325 MG TAB PO SCH (12:53)
[2016-11-16] MEDS: INSULIN DETEMIR 100 UNITS/ML VIAL SQ SCH (12:56)
[2016-11-16] MEDS ORDERED: ASPI325T PO (14:36)
[2016-11-16] MEDS ORDERED: DILA100C PO (14:36)
--- NOTE | 2016-11-16 14:37 | HHI.DCPOC ---
Discharge Care Plan Diagnosis: (1) Multifocal neurological deficit (2) Acute encephalopathy (3) Hypercoagulable state (4) T2DM (type 2 diabetes mellitus) Goals to Promote Your Health * To prevent worsening of your condition and complications * To maintain your health at the optimal level Directions to Meet Your Goals Take your medications as prescribed Follow your dietary instruction Follow activity as directed Keep your appointments as scheduled Take your immunizations and boosters as scheduled If your symptoms worsen call your PCP, if no PCP go to Urgent Care Center or Emergency Room Smoking is Dangerous to Your Health. Avoid second hand smoke Call the 24-hour hour crisis hotline for domestic abuse at Yasir Govea MD R2 November 16, 2016 14:37
--- NOTE | 2016-11-16 15:49 | PD.ONC.PN ---
Subjective Subjective Remarks Afebrile overnight. Patient resting comfortably in bed with mother at bedside. Objective Data Date Time Temp Pulse Resp B/P Pulse Ox O2 Delivery O2 Flow Rate FiO2 11/16/16 12:34 95.7 100 16 122/74 100 11/16/16 08:36 96.9 88 18 127/87 100 11/16/16 06:14 89 11/16/16 05:14 96.0 73 20 98/59 99 11/16/16 01:02 98.3 85 20 102/64 98 11/15/16 22:00 89 11/15/16 21:30 99.0 100 20 124/71 100 11/15/16 15:54 98.9 97 18 109/62 100 11/16/16 11/16/16 11/16/16 06:59 14:59 22:59 Intake Total 240 ml Balance 240 ml Result Diagram: 11/14/16 0446 11/13/16 0843 Laboratory Results Laboratory Tests Test 11/16/16 08:20 Phenytoin (Dilantin) Level 12.8 MCG/ML Culture Results Microbiology Date/Time Procedure Status Source Growth 11/14/16 10:45 Stool Occult Blood (XIOMARA) - Final Complete Stool Stool HEMOCCULT NEGATIVE Administered Medications Medications (Trade) Dose Ordered Sig/Liliya Route PRN Reason Start Time Stop Time Status Last Admin Dose Admin Sodium Chloride (NS Flush) 2 ml BID IV FLUSH 11/10/16 13:30 11/16/16 09:00 Aspirin (Aspirin) 325 mg DAILY PO 11/11/16 12:00 11/16/16 12:53 Heparin Sodium (Porcine) (Heparin Inj) 5,000 units BID SQ 11/12/16 21:00 11/16/16 09:00 Insulin Detemir (Levemir Inj) 10 units Q12HR SQ 11/15/16 21:00 11/16/16 12:56 Phenytoin (Dilantin) 100 mg Q8H PO 11/16/16 14:00 11/16/16 12:53 Objective Remarks GENERAL: Young man, sitting up in bed in nad. SKIN: Warm and dry. HEAD: Normocephalic. EYES: No injection or drainage. NECK: Supple, trachea midline. CARDIOVASCULAR: Regular rate and rhythm RESPIRATORY: Breath sounds equal bilaterally. No accessory muscle use. GASTROINTESTINAL: Abdomen soft, non-tender, nondistended. EXTREMITIES: No cyanosis NEUROLOGICAL: awake. normal speech. moving all extremities. oriented x 0. Assessment/Plan Problem List: (1) CVA (cerebral vascular accident) Status: Acute (2) Seizure disorder, complex partial Status: Acute (3) Acute embolic stroke within last 8 weeks Status: Acute (4) Acute encephalopathy Status: Acute (5) Multifocal neurological deficit Status: Acute Assessment 21-year-old male with no significant past medical history who presents to the emergency department with acute encephalopathy/confusion/decline in cognitive functioning and acute brain infarction. Hematology has been consulted to make further recommendations in this patient who has developed a CVA at an early age. 1. Acute stroke/encephalopathy: hypercoagulable w/u unremarkable --currently on heparin prophylaxis and ASA 325mg PO daily. --recommend referral to tertiary care center (can be on outpatient basis) Attending Statement The exam, history, and the medical decision-making described in the above note were completed with the assistance of the mid-level provider. I reviewed and agree with the findings presented. I attest that I had a [id number] encounter with the patient on the same day, and personally performed and documented my assessment and findings in the medical record. Hypercoagulable w/u unremarkable Prophylaxis with ASA and possibly Plavix for stroke prevention. Would defer to neurology No anticoagulation Problem Qualifiers (1) CVA (cerebral vascular accident): Qualified Code: I63.9 - Cerebrovascular accident (CVA), unspecified mechanism (2) Seizure disorder, complex partial: Cassia Jorge November 16, 2016 15:49 Kb Burnham MD November 16, 2016 21:55
[2016-11-16 16:09] VITALS: BP 143/71; PULSE 114; RESP 18; TEMP 98.7; O2SAT 96
--- NOTE | 2016-11-16 18:04 | HHI.DS ---
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 Burnham' s recommendations patient does not need to be on anticoagulation as an outpatient, and recommends antiplatelet therapy per recommendations from neurology Fosphenytoin 130 mgpe IV q12h per neurology while inpatient; transitioned to Dilantin 100 mg po q8h Continue Aspirin 325 mg po daily Acyclovir 500 mg IV every 8 hours (11/10-11/12), now discontinued per neurology Imaging: -Brain MRI shows 1. Acute nonhemorrhagic infarction involving the left temporal parietal lobe. 2. Abnormal signal involving both temporal lobes and right parietal lobe. These areas are not consistent with an infarction. The findings would suggest global hypoxia. -Head CTA, head MRA, neck CTA, abdominal ultrasound, chest x-ray all reviewed and within normal limits. -Echocardiogram: Bubble study negative for ASD/PFO -EEG: Abnormal EEG because of left more than right hemisphere intermittent slowing with some associated sharp discharges with phase reversal. Findings suggest left more than right hemispheres structural abnormality and associated epileptiform discharge. Probably present out of the left frontal central head region. -MRI spectroscopy showing findings of infarction in the left parietal lobe -US of pancreas: visualized portions are within normal limits -FRANKY performed 11/16 tentatively negative for endocarditis and again negative bubble study, however still awaiting final report by cardiology Labs: Hepatitis panel negative RPR non-reactive HIV 1&2 negative HSV I and II DNA PCR both negative West Nile virus <0.90 Lyme serology all non-reactive; DNA PCR negative CSF: Glucose 98, protein 64.1; CSF lactic acid elevated at 6.0 CSF: No growth after 72 hours Blood cultures no growth after 5 days CSF VDRL non-reactive CSF lyme disease not detected CSF cryptococcus antigen not detected CSF enterovirus negative CSF myelin basic protein < 2.0 Extended UDS all negative Cytology negative for malignant cells AILYN negative RF negative (2) Acute encephalopathy Diagnosis: Principal Plan: see assessment and plan as above. (3) Hypercoagulable state Diagnosis: Secondary Plan: Hematology consult Heparin as above No anticoagulation needed as an outpatient per Dr. Burnham, hematology/oncology Continue aspirin 325 mg po daily Hypercoagulable workup negative (4) T2DM (type 2 diabetes mellitus) Diagnosis: Secondary Plan: Accuchecks ACHS Low-dose ISS Increased Levemir to 10 units subq BID Continue PO meds on discharge (5) FEN/PPX Diagnosis: Secondary Plan: Fluids: Tolerating by mouth Electrolytes: WNLs on 11/13 Nutrition: Diabetic diet Prophylaxis: Heparin as above per hematology Consultants Neurology, Hematology, Cardiology Procedures TTE 11/10: Bubble study was negative for ASD/PFO. Left ventricle cavity size was normal. Wall thickness was normal. Systolic function was normal. The estimated ejection fraction was in the range of 55% to 60%. Wall motion was normal; there were no regional wall motion abnormalities. Mitral valve: There is an echodensity on the papillary muscle of the medial leaflet, consistent with calcium though endocarditis cannot be completely excluded FRANKY 11/16: Still awaiting final report from cardiology, tentatively negative as above, again negative bubble study Brief History Mr Morales is a 21 year old male sent to the ED by his neurologist in [place] for further evaluation following an MRI brain w/ and w/o from 11/06 with findings showing multifocal areas of acute cortical infarction involving the left posterior parietal, left medial occipital, bilateral temporal lobes with no acute hemorrhage noted. Parents state he was previously healthy prior to 2016. At that time, the patient was at college in [place], [place] and his parents report he called them over the phone due to having slurred speech. Parents state the only other symptom he had at that time was of a headache. Patient did not have any motor weakness or cognitive deficit that they know of. They state he was evaluated by a physician shortly after that, had a CT scan in July which they state was normal. He was later evaluated by an deep tissue massage therapist during spring in August and diagnosed with T2DM; patient had an HbA1c of 10.8. He was then started on Metformin. During spring he also had a complete physical examination by his PCP as well as basic lab workup which parents state were all normal. Parents state he was at his baseline healthy status and functioning well without any speech, motor, or cognitive deficit. He visited home again during and was fine at that time. Parents state near the end of September he called his parents again and stated he had difficulty comprehending his final exam. He also starting becoming more confused at this time and parents state he could only understand a few things. Patient was able to graduate college with a degree in criminal justice but parents state he remained so confused he needed close assistance to be able to walk across the stage at graduation. Patient has been living with his parents the past couple weeks and parents report his cognitive status has continued to slowly decline over this time period. They also report he first had motor weakness earlier today when his balance was off. Parents do state he has exposure to ticks. They previously had a [employer] dog and he would help to get ticks off the dog. However they state to their knowledge he was never bitten by a tick. They deny him every using IV drugs. They state he is not sexually active. No h/o syphilis. They deny any fevers, chills, or night sweats at any time since his symptoms first appeared in July. Overnight, he is stable roughly with some unusual sxs including yesterday he was seeing a nonexistent person at the far corner of his right gaze. He today is counting three people and three objects in the room. He had multiple tests and has the areas of infarct seen bilaterally mainly temporoparietal. Per reports, his carotids and blood vessels look fine. Per echo, a bubble test did not show PFO. There was some question of a calcification or vegetation on the papillary muscle of the mitral valve. An LP was performed to assess for infection. CBC/BMP: 11/14/16 0446 11/13/16 0843 Significant Findings Laboratory Tests Test 11/14/16 04:46 Red Blood Count 4.24 MIL/MM3 (4.50-5.90) Hematocrit 37.3 % (39.0-51.0) Imaging 11/10 brain MRI: Acute nonhemorrhagic infarction involving the left temporal parietal lobe, abnormal signal involving both temporal lobes and right parietal lobe, these areas are not consistent with infarction. The findings would suggest global hypoxia. Infectious encephalitis could have a similar appearance but is felt less likely. 11/[address]: Acute left temporoparietal infarction. In a patient of this age emboli should be considered both bland and septic. Echocardiography should be considered. 11/10 Head CTA: no stenosis, thrombus or aneurysm. 11/10 head MRA: Unremarkable MR angiography of the brain 11/10 neck CTA: Negative examination of the carotid arteries 11/10 chest x-ray: No acute disease. 11/11 abdomen ultrasound: Unremarkable ultrasound examination of the abdomen MRI spectroscopy 11/13: Findings of infarction in the left parietal lobe 11/14 one pancreas ultrasound: No acute abnormality demonstrated PE at Discharge GENERAL: NAD, lying in bed NEURO: Limited due to cognitive status. Patient is alert. Oriented to person and date. Able to follow some commands. Speech is same as yesterday. Answers about 50% of questions correctly. SKIN: Warm and dry. No rashes or erythema. HEAD: Normocephalic. Atraumatic. EYES: EOMI. No scleral icterus. No injection or drainage. ENT: Bilateral hearing aids in place. No nasal drainage. Moist mucous membranes. No oral ulcers or lesions. NECK: Supple, trachea midline. No JVD or lymphadenopathy. CARDIOVASCULAR: Regular rate and rhythm without murmurs, rubs, gallops, or plops. Peripheral pulses 2+. RESPIRATORY: Breath sounds clear to auscultation and equal bilaterally, without wheezes, rales, or rhonchi. No accessory muscle use. GASTROINTESTINAL: Abdomen soft, nontender, nondistended, normal BS. No organomegaly or masses. No guarding. MUSCULOSKELETAL: No edema, cyanosis, or clubbing. BACK: Nontender without obvious deformity. Hospital Course The patient was started by neurology on acyclovir 500 mg IV every 8 hours due to an initial suspicion for HSV encephalitis. Neurology, cardiology, and hematology were all consulted on admission. Cardiology performed a TTE, results as above with negative bubble study. Hematology evaluated the patient. An LP was performed on 11/11 for CSF fluid analysis and for assessment of infectious etiologies. Interventional radiology cleared the patient to be started on anticoagulation 24 hours after the LP. Per neurology, the patient was started on heparin 5000 units subcutaneous twice a day. The patient was evaluated by physical therapy, he had no issues ambulating and never had any motor or balance deficits. The patient was thus not a candidate for [facility]. Speech therapy worked with the patient during his hospitalization. The patient was started on Cerebyx for control of seizures per neurology. His entire workup was negative as below, with the exception of elevated glucose, elevated protein, and elevated lactic acid and the cerebrospinal fluid. His serum lactic acid was also mildly elevated at 2.1. There was a growing suspicion for mitochondrial disorders, specifically MELAS. Growth differentiation factor 15 was obtained as a send out test to go to [facility], this was per the recommendation of laboratory processing who was assisting with genetic testing. The patient did not have any complications during his hospitalization. His seizure like activity and hallucinations he had on admission both improved. He did remain with some perseveration, ideomotor apraxia, and dysnomia. The family was instructed and will be given an outpatient laboratory test to screen for the full genetic testing panel to include mitochondrial inherited disorders which will again be a send out test. Hepatitis panel negative RPR non-reactive HIV 1&2 negative HSV I and II DNA PCR both negative West Nile virus <0.90 Lyme serology all non-reactive; DNA PCR negative CSF: Glucose 98, protein 64.1; CSF lactic acid elevated at 6.0 CSF: No growth after 72 hours Blood cultures no growth after 5 days CSF VDRL non-reactive CSF lyme disease not detected CSF cryptococcus antigen not detected CSF enterovirus negative CSF myelin basic protein < 2.0 Extended UDS all negative Cytology negative for malignant cells AILYN negative RF negative Hypercoagulable workup negative Pt Condition on Discharge: Stable Discharge Disposition: Discharge Home Discharge Instructions DIET: Follow Instructions for: Diabetic Diet Activities you can perform: See Additionl Instruction Activities to Avoid: Contact Sports, Driving Other Activity Instructions: Do not drive, swim, bathe in bathtubs, climb, or do other activites involving heights or would endanger you due to seizures. Follow up Referrals: Neurology - 1 Week with Cuong Alvarez MD PCP Follow-up - 2 Days with Charlie Juarez MD New Medications: Aspirin (Aspirin) 325 Mg Tab 325 MG PO DAILY #30 TAB Phenytoin Extended (Dilantin) 100 Mg Cap 100 MG PO Q8H #90 CAP Continued Medications: Metformin (Metformin) 500 Mg Tab 500 MG PO BIDPC With meals Blood Sugar Management #60 Ref 0 TAB Sitagliptin-Metformin ER (Janumet Xr) 50-1,000 Mg Tab 1 TAB PO DAILY Blood Sugar Management #30 Ref 0 TAB Emil Alvarez MD R1 November 16, 2016 18:04
--- NOTE | 2016-11-17 14:47 | HHI.FPPN ---
Addendum to progress note ADDENDUM Reason for addendum: Additonal documentation Additional information Called mother of patient at [phone] to inform her of an outpatient laboratory test "mitochondrial full genome analysis" that has been faxed to laboratory processing and that she can bring TJ here today or tomorrow to have this panel sent off to [facility]. Mother stated she plans to schedule an appointment with Dr. Alvarez, neurology, within one week and she will follow up the results of this genetic panel with Dr. Alvarez. Emil Alvarez MD R1 November 17, 2016 14:47
--- NOTE | 2016-11-17 16:39 | CF ---
cc: GWENDOLYN ANGELA MD INDICATIONS FOR PROCEDURE: Cerebrovascular accident. DETAILS OF PROCEDURE: The patient and his father gave informed consent. He was kept NPO prior to the procedure. Anesthesia was utilized for sedation and their notes are dictated separately. The patient was sedated by anesthesia. The transesophageal echocardiogram probe passed easily into the esophagus. He tolerated the study well. IV bubbles via agitated saline was utilized. The patient tolerated the procedure well. FINDINGS: LEFT VENTRICULOGRAM: Left ventriculogram, this shows an ejection fraction of 55%. There are no focal wall motion abnormalities. CHAMBERS: All four cardiac chambers are of normal limits. Of note there was no structural abnormalities except for some minor calcium in the mitral apparatus. The agitated saline did not reveal a patent foramen ovale. VALVULAR EVALUATION: The aortic valve appeared structurally normal. There were some valvular <<1:48>> note the mitral valve appeared structurally and functionally normal. Again some mitral calcifications were noted in the mitral apparatus/papillary muscle. No significant regurgitation or stenosis was noted on either the mitral or aortic valve. The tricuspid valve was also structurally and functionally normal. The pulmonic valve was not well visualized. PERICARDIUM: No effusion was present. CONCLUSIONS: 1. Normal left ventricular function. 2. Normal valvular evaluation. 3. No atrial septal defect or patent foramen ovale by bubbles. 4. No obvious cardiac source for etiology of his cerebrovascular accident. Gwendolyn Angela M.D. DENAE/ronnie /9:22 AM /4:34 PM
== END 2016-11-16 19:22 | disposition home or self-care (01) | DRG 65 ==
LOC: NEPE 11:57 → NEDA 11:58 → N05A 18:27
PROVIDERS: ADMIT Family Medicine; ATTEND Family Medicine
PROC: 009U3ZX Drainage of Spinal Canal, Percutaneous Approach, Diagnostic (ICD-10-PCS; principal; 2016-11-11)
DX: I63.9 Cerebral infarction, unspecified (principal); E88.41 MELAS syndrome; G40.209 Localization-related (focal) (partial) symptomatic epilepsy and epileptic syndromes with complex partial seizures, not intractable, without status epilepticus; R47.1 Dysarthria and anarthria; E11.9 Type 2 diabetes mellitus without complications; Z79.84 Long term (current) use of oral hypoglycemic drugs
CPT/HCPCS: 62270; 70450; 70496; 70498; 70544; 70553; 71010; 76390; 76700; 76705; 77003; 80053; 80061; 80074; 80076; 80185; 80307; 81001; 81240; 81241; 81291; 82085; 82140; 82272; 82550; 82607; 82945; 82948; 83036; 83090; 83605; 83873; 84157; 84210; 84443; 84484; 85025; 85027; 85300; 85303; 85306; 85610; 85613; 85652; 85730; 86038; 86140; 86403; 86430; 86592; 86617; 86703; 86788; 87040; 87070; 87205; 87498; 87529; 87801; 89051; 93005; 93306; 93312; 93320; 93325; 95819; A9579; G0481; J0133; J1644; J1815; J2060; Q2009; Q9967

== ENCOUNTER → 2016-11-18 | Outpatient (CLI) | payer OTHER ==
[~2016-11-18] MED LIST: ASPI325T PO; DILA100C PO; METF500T PO; SITA50TA4 PO
== END ==
LOC: CLAB 08:24
PROVIDERS: ATTEND Family Medicine
DX: E88.41 MELAS syndrome (principal); E11.9 Type 2 diabetes mellitus without complications; G40.209 Localization-related (focal) (partial) symptomatic epilepsy and epileptic syndromes with complex partial seizures, not intractable, without status epilepticus; I63.9 Cerebral infarction, unspecified